=== PATIENT | female | born 1995 | race Two or more races ===

== ENCOUNTER 2019-12-29 05:19 | Inpatient (IN) | payer OTHER, SELFPAY ==
[~2019-12-29 05:19] MED LIST: Citric Acid/Sodium Citrate Solution 30 ML Cup PO ONE; Oxytocin/0.9 % Sodium Chloride 30 UNIT/500 ML BAG IV SCH; Sodium Chloride 0.9% 10 ML SDV IV PRN; Sodium Chloride 0.9% 10 ML Syringe FLUSH PRN; Sodium Chloride 0.9% 2.5 ML Syringe FLUSH PRN
[2019-12-29] MEDS: Lactated Ringers 1,000 ML IV SCH ×4 (06:04→23:41)
--- NOTE | 2019-12-29 07:06 | PCM.PREANE ---
Preanesthetic Assessment - Anesthesia/Transfusion/Family Hx Anesthesia History: Prior Anesthesia Without Reaction Family History of Anesthesia Reaction: No Transfusion History: No Prior Transfusion(s) Intubation History: Unknown - Review of Systems General: No Symptoms Pulmonary: No Symptoms Cardiovascular: No Symptoms Gastrointestinal: No Symptoms Neurological: No Symptoms Other: Reports: None - Physical Assessment Height: 5 ft 5.75 in Weight: 90 kg ASA Class: 2 Mental Status: Alert & Oriented x3 Airway Class: Mallampati = 2 Dentition: Reports: Normal Dentition Thyro-Mental Finger Breadths: 3 Mouth Opening Finger Breadths: 3 ROM/Head Extension: Full Lungs: Clear to Auscultation, Normal Respiratory Effort Cardiovascular: Regular Rate, Regular Rhythm - Lab Values: Laboratory Last Values WBC 6.60 K/uL (4.0-11.0) 12/28/19 09:45 RBC 4.64 M/uL (4.30-5.90) 12/28/19 09:45 Hgb 12.7 g/dL (12.0-16.0) 12/28/19 09:45 Hct 38.7 % (36.0-46.0) 12/28/19 09:45 MCV 83.4 fL (80.0-98.0) 12/28/19 09:45 MCH 27.4 pg (27.0-32.0) 12/28/19 09:45 MCHC 32.8 g/dL (31.0-37.0) 12/28/19 09:45 RDW Std Deviation 41.1 fl (28.0-62.0) 12/28/19 09:45 RDW Coeff of Jael 14 % (11.0-15.0) 12/28/19 09:45 Plt Count 164 K/uL (150-400) 12/28/19 09:45 MPV 9.90 fL (7.40-12.00) 12/28/19 09:45 Nucleated RBC % 0.0 /100WBC 12/28/19 09:45 Nucleated RBCs # 0 K/uL 12/28/19 09:45 Blood Type O POSITIVE 12/28/19 09:45 Antibody Screen NEGATIVE 12/28/19 09:45 - Allergies Allergies/Adverse Reactions: Allergies Allergy/AdvReac Type Severity Reaction Status Date / Time No Known Allergies Allergy Verified 12/26/19 09:12 - Anesthesia Plan Free Text/Narrative:: Ipad translators used to review health history and obtain consent. Pt and spouse have no questions at this time. 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: Reports: : 3 Para: 2 LMP (Approximate): Musculoskeletal History: Reports: None Neurological History: Reports: None Psychiatric History: Reports: None Endocrine/Metabolic History: Reports: Obesity/BMI 30+ Hematologic History: Reports: None Immunologic History: Reports: None Oncologic (Cancer) History: Reports: None Dermatologic History: Reports: None - Infectious Disease History Other Infectious Disease History: Positive Hx Varicella - Past Surgical History Head Surgeries/Procedures: Reports: None HEENT Surgical History: Reports: Tonsillectomy Cardiovascular Surgical History: Reports: None Respiratory Surgical History: Reports: None GI Surgical History: Reports: None Female Surgical History: Reports: Section Endocrine Surgical History: Reports: None Neurological Surgical History: Reports: None Musculoskeletal Surgical History: Reports: None Oncologic Surgical History: Reports: None Dermatological Surgical History: Reports: None - SUBSTANCE USE Smoking Status *Q: Never Smoker Second Hand Smoke Exposure: No Recreational Drug Use History: No - HOME MEDS Home Medications: Home Meds Pnv No.95/Ferrous Fum/Folic AC [ Tablet] 1 each PO DAILY 12/21/19 [History] Calcium Carb, Citrate/Vit D3 [Calcium + D3 ER Tablet] 1 tab PO DAILY 12/26/19 [History] - CURRENT (IN HOUSE) MEDS Current Meds: Current Medications Oxytocin/Sodium Chloride (Oxytocin 30 Unit/500 Ml-Ns) 30 unit in 500 mls @ 250 mls/hr IV TITRATE JASMEET Lactated Ringer's (Ringers, Lactated) 1,000 mls @ 500 mls/hr IV BOLUS JASMEET Last Admin: 12/29/19 06:04 Dose: 500 mls/hr Documented by: Sodium Chloride (Saline Flush) 10 ml FLUSH ASDIRECTED PRN PRN Reason: Keep Vein Open Sodium Chloride (Saline Flush) 2.5 ml FLUSH ASDIRECTED PRN PRN Reason: Keep Vein Open Sodium Chloride (Normal Saline) 10 ml IV ASDIRECTED PRN PRN Reason: IV Use Discontinued Medications Citric Acid/Sodium Citrate (Bicitra Solution) 30 ml PO ONETIME ONE Stop: 12/28/19 09:03
[2019-12-29] MEDS ORDERED: Ondansetron 4 MG/2 ML SDV ONE (07:10)
[2019-12-29] MEDS ORDERED: Oxytocin 10 Units/1 ML SDV ONE (07:10)
[2019-12-29] MEDS ORDERED: ceFAZolin 1 GM Vial ONE (07:11)
[2019-12-29] MEDS ORDERED: Sodium Chloride 0.9% 20 ML ONE (07:11)
[2019-12-29] MEDS ORDERED: Morphine PF 10 MG/10 ML SDV ONE (07:17)
[2019-12-29] MEDS ORDERED: Octyl 2-Cyanoacrylate 1 Tube ONE (07:37)
[2019-12-29] MEDS ORDERED: Citric Acid/Sodium Citrate Solution 30 ML Cup ONE (07:46)
--- NOTE | 2019-12-29 08:00 | PCM.LDHP ---
L&D History of Present Illness - General Date of Service: 12/29/19 Admit Problem/Dx: Patient Status Order with Admit Dx/Problem 12/28/19 09:02 Patient Status [ADT] Routine Admission Diagnosis/Problem Admission Diagnosis/Problem Source of Information: Patient History Limitations: Reports: No Limitations - History of Present Illness Improves with: Reports: None Worsens with: Reports: None Associated Symptoms: Reports: N - Related Data Allergies/Adverse Reactions: Allergies Allergy/AdvReac Type Severity Reaction Status Date / Time No Known Allergies Allergy Verified 12/26/19 09:12 Home Medications: Home Meds Pnv No.95/Ferrous Fum/Folic AC [ Tablet] 1 each PO DAILY 12/21/19 [Histo ry] Calcium Carb, Citrate/Vit D3 [Calcium + D3 ER Tablet] 1 tab PO DAILY 12/26/19 [History] Past Medical History - Past Health History Medical/Surgical History: Denies Medical/Surgical History HEENT History: Reports: None Cardiovascular History: Reports: None Respiratory History: Reports: None Gastrointestinal History: Reports: Gastritis, GERD Genitourinary History: Reports: None 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: Musculoskeletal History: Reports: None Neurological History: Reports: None Psychiatric History: Reports: None Endocrine/Metabolic History: Reports: Obesity/BMI 30+ Hematologic History: Reports: None Immunologic History: Reports: None Oncologic (Cancer) History: Reports: None Dermatologic History: Reports: None - Infectious Disease History Other Infectious Disease History: Positive Hx Varicella - Past Surgical History Head Surgeries/Procedures: Reports: None HEENT Surgical History: Reports: Tonsillectomy Cardiovascular Surgical History: Reports: None Respiratory Surgical History: Reports: None GI Surgical History: Reports: None Female Surgical History: Reports: Section Endocrine Surgical History: Reports: None Neurological Surgical History: Reports: None Musculoskeletal Surgical History: Reports: None Oncologic Surgical History: Reports: None Dermatological Surgical History: Reports: None Social & Family History - Tobacco Use Smoking Status *Q: Never Smoker Second Hand Smoke Exposure: No - Caffeine Use Caffeine Use: Reports: None - Recreational Drug Use Recreational Drug Use: No Drug Use in Last 12 Months: No H&P Review of Systems - Review of Systems: Review Of Systems: See Below General: Reports: No Symptoms HEENT: Reports: No Symptoms Pulmonary: Reports: No Symptoms Cardiovascular: Reports: No Symptoms Gastrointestinal: Reports: No Symptoms Genitourinary: Reports: No Symptoms Musculoskeletal: Reports: No Symptoms Skin: Reports: No Symptoms Psychiatric: Reports: No Symptoms Neurological: Reports: No Symptoms Hematologic/Lymphatic: Reports: No Symptoms Immunologic: Reports: No Symptoms L&D Exam - Exam Exam: See Below - Vital Signs Weight: 90 kg - OB Specific Contraction Intensity: Mild Movement: Active Heart Tones: Present Presentation: Vertex - Exam General: Alert, Oriented HEENT: PERRLA, Conjunctiva Clear, EACs Clear, EOMI, Hearing Intact, Mucosa Moist & Weaver, Nares Patent, Normal Nasal Septum, Posterior Pharynx Clear, TMs Clear Neck: Supple, Trachea Midline Lungs: Clear to Auscultation, Normal Respiratory Effort Cardiovascular: Regular Rate, Regular Rhythm GI/Abdominal Exam: Normal Bowel Sounds, Soft, Non-Tender, No Organomegaly, No Distention, No Abnormal Bruit, No Mass, Pelvis Stable Rectal Exam: Normal Exam, Normal Rectal Tone Genitourinary: Normal external exam, Normal bimanual exam, Normal speculum exam Back Exam: Normal Inspection, Full Range of Motion Extremities: Normal Inspection, Normal Range of Motion, Non-Tender, No Pedal Edema, Normal Capillary Refill Skin: Warm, Dry, Intact Neurological: Cranial Nerves Intact, Reflexes Equal Bilateral Psychiatric: Alert, Normal Affect, Normal Mood - Patient Data Lab Results Last 24 hrs: Laboratory Results - last 24 hr 12/28/19 12/28/19 Range/Units 09:45 09:45 WBC 6.60 (4.0-11.0) K/uL RBC 4.64 (4.30-5.90) M/uL Hgb 12.7 (12.0-16.0) g/dL Hct 38.7 (36.0-46.0) % MCV 83.4 (80.0-98.0) fL MCH 27.4 (27.0-32.0) pg MCHC 32.8 (31.0-37.0) g/dL RDW Std Deviation 41.1 (28.0-62.0) fl RDW Coeff of Jael 14 (11.0-15.0) % Plt Count 164 (150-400) K/uL MPV 9.90 (7.40-12.00) fL Nucleated RBC % 0.0 /100WBC Nucleated RBCs # 0 K/uL Blood Type O POSITIVE Antibody Screen NEGATIVE Result Diagrams: 12/28/19 09:45 Problem List Initiated/Reviewed/Updated: Yes Orders Last 24hrs: Active Orders 24 hr Category Date Time Status Patient Status [ADT] Routine ADT 12/28/19 09:02 Active Procedure Site Prep Instruct [RC] ASDIRECTED Care 12/28/19 09:02 Active Up ad Mikaela [RC] ASDIRECTED Care 12/28/19 09:02 Active Vital Signs [RC] PER UNIT ROUTINE Care 12/28/19 09:02 Active RPR (SYPHILIS SERO) W/ RFLX [REF] Routine Lab 12/28/19 09:45 Received Lactated Ringers [Ringers, Lactated] 1,000 ml Med 12/28/19 09:15 Active IV BOLUS Oxytocin/0.9 % Sodium Chloride [Oxytocin 30 Unit/500 ML Med 12/28/19 09:15 Active -NS] 30 unit in 500 ml IV TITRATE Sodium Chloride 0.9% [Normal Saline] Med 12/28/19 09:02 Active 10 ml IV ASDIRECTED PRN Sodium Chloride 0.9% [Saline Flush] Med 12/28/19 09:02 Active 10 ml FLUSH ASDIRECTED PRN Sodium Chloride 0.9% [Saline Flush] Med 12/28/19 09:02 Active 2.5 ml FLUSH ASDIRECTED PRN Peripheral IV Insertion Adult [OM.PC] Routine Oth 12/28/19 09:02 Ordered Schedule Procedure [COMM] Per Unit Routine Oth 12/28/19 09:02 Ordered Resuscitation Status Routine Resus Stat 12/28/19 09:02 Ordered Medication Orders Oxytocin/Sodium Chloride (Oxytocin 30 Unit/500 Ml-Ns) 30 unit in 500 mls @ 250 mls/hr IV TITRATE JASMEET Lactated Ringer's (Ringers, Lactated) 1,000 mls @ 500 mls/hr IV BOLUS JASMEET Last Admin: 12/29/19 07:56 Dose: 500 mls/hr Documented by: Infusion: 12/29/19 07:56 Dose: 500 mls/hr Documented by: Admin: 12/29/19 06:04 Dose: 500 mls/hr Documented by: VIRGEN Sodium Chloride (Saline Flush) 10 ml FLUSH ASDIRECTED PRN PRN Reason: Keep Vein Open Sodium Chloride (Saline Flush) 2.5 ml FLUSH ASDIRECTED PRN PRN Reason: Keep Vein Open Sodium Chloride (Normal Saline) 10 ml IV ASDIRECTED PRN PRN Reason: IV Use Assessment/Plan Comment:: Term admitted for elective repeat C/section.
[2019-12-29] MEDS ORDERED: Glycopyrrolate 0.2 MG/ML SDV ONE ×2 (08:09→08:14)
[2019-12-29] MEDS ORDERED: ePHEDrine 50 MG/ML SDV ONE (08:09)
[2019-12-29] MEDS ORDERED: Metoprolol Tartrate 5 MG/5 ML SDV ONE (08:16)
[2019-12-29] MEDS ORDERED: Bisacodyl 10 MG Supp RECTAL PRN (08:47)
[2019-12-29] MEDS ORDERED: Misoprostol 200 MCG Tab RECTAL PRN (08:47)
[2019-12-29] MEDS ORDERED: Methylergonovine 0.2 MG/1 ML Amp IM PRN (08:47)
[2019-12-29] MEDS ORDERED: Acetaminophen/oxyCODONE 325-5 MG Tab PO PRN ×2 (08:47)
[2019-12-29] MEDS ORDERED: Oxytocin 10 Units/1 ML SDV IM PRN (08:47)
[2019-12-29] MEDS ORDERED: Lanolin 100% Cream 7 GM Tube TOP PRN (08:47)
[2019-12-29] MEDS ORDERED: Tranexamic Acid 1,000 MG in Sodium Chloride 0.9% 100 ML IV PRN (08:47)
[2019-12-29] MEDS ORDERED: Ondansetron 4 MG/2 ML SDV IVPUSH PRN (08:47)
[2019-12-29] MEDS ORDERED: diphenhydrAMINE 50 MG/ML SDV IVPUSH PRN ×2 (08:47→08:54)
--- NOTE | 2019-12-29 08:51 | PCM.OPNOTE ---
- General Post-Op/Procedure Note Date of Surgery/Procedure: 12/29/19 Operative Procedure(s): IUP term, repeat C/section. Post-Op Diagnosis: Same Anesthesia Technique: Spinal Primary Surgeon: Mannie Otto Warranty Coordinator: Tami Medina Warranty Coordinator: Angeline Damico EBL in mLs: 800 Complications: None Condition: Good
[2019-12-29] MEDS ORDERED: Naloxone 0.4 MG/ML Syringe IVPUSH PRN (08:54)
[2019-12-29] MEDS ORDERED: Nalbuphine 10 MG/1 ML Vial IVPUSH PRN (08:54)
[2019-12-29] MEDS: Ketorolac 30 MG/ML SDV IVPUSH SCH ×3 (09:23→21:59)
--- NOTE | 2019-12-29 10:51 | PCM.POSTAN ---
POST ANESTHESIA ASSESSMENT - MENTAL STATUS Mental Status: Alert, Oriented - VITAL SIGNS Vital Signs: Last Vital Signs Temp 37 C 12/29/19 09:02 Pulse 64 12/29/19 10:31 Resp 15 12/29/19 10:31 BP 113/70 12/29/19 10:31 Pulse Ox 97 12/29/19 10:31 - RESPIRATORY Respiratory Status: Respiratory Rate WNL, Airway Patent, O2 Saturation Stable - CARDIOVASCULAR CV Status: Pulse Rate WNL, Blood Pressure Stable - GASTROINTESTINAL GI Status: No Symptoms - PAIN Pain Score: 0 - POST OP HYDRATION Hydration Status: Adequate & Stable - OBSERVATIONS Free Text/Narrative:: The patient tolerated the procedure well. There were no apparent anesthetic complications at this time. Discharge to floor per criteria.
--- NOTE | 2019-12-29 14:38 | OR ---
SURGEON: Mannie Otto MD DATE OF PROCEDURE: 12/29/2019 PREOPERATIVE DIAGNOSES: Intrauterine , is term, previous section x2. POSTOPERATIVE DIAGNOSES: Intrauterine , is term, previous section x2. OPERATION PERFORMED: Repeat low transverse section. PRIMARY SURGEON: Mannie Otto MD ASSISTANTS: Tami Medina CNM, and Angeline Damico. ANESTHESIA: Spinal, Mr. Loco Ramirez. ESTIMATED BLOOD LOSS: 800 mL. COMPLICATIONS: None. FINDINGS: A viable male fetus. score reported to be 8 and 9. The weight is not available. INDICATIONS FOR SURGERY: [place] referred to the admit note. This patient does have a previous section x2. She had limited care in the [place]. She recently moved from [place], and by an ultrasound and size, she is 39 weeks. The patient is unsure of when was her last menstrual cycle. PROCEDURE IN DETAIL: The patient was brought to the OR, properly identified, and after adequate level of spinal anesthesia with a Bravo catheter in the bladder, the patient was prepped and draped in sterile fashion as usual. Time-out was taken and then low transverse Pfannenstiel skin incision was done. Carmenza fascia and rectus fascia were opened in direction of the incision. The 2 recti muscles were . Peritoneal cavity was entered. A bladder flap was raised in the usual manner pushing the bladder away from the lower uterine segment and low transverse uterine incision was done extending manually with the hand. Fetus was in a footling breech presentation, delivered without any problem. Fetus cried immediately and later on the score reported to be 8 and 9. The placenta delivered spontaneous, complete, and intact and repair of the lower uterine segment was done with 2-0 Vicryl continuous interlocking in 2 layers. Reperitonealization done with 3-0 Vicryl continuous and then the peritoneal cavity entered, being evacuated completely from all blood and blood clot and closed with 3-0 Vicryl continuous. The rectus fascia then was closed with #1 PDS double strand continuous, the Carmenza fascia with 3-0 Vicryl continuous, and skin closed in a subcuticular fashion with Stratafix. Instrument and sponge count was correct. The patient tolerated the procedure well, went to recovery room in stable general condition. HUGH / MODAnthony /[id number]
[2019-12-29] MEDS: Docusate Sodium 100 MG Cap PO SCH (21:58)
[2019-12-30] MEDS: Ketorolac 30 MG/ML SDV IVPUSH SCH ×2 (03:13→09:31)
--- NOTE | 2019-12-30 06:25 | PCM48HPAN ---
Post Anesthesia Note - EVALUATION WITHIN 48HRS OF ANESTHETIC Vital Signs in Normal Range: Yes Patient Participated in Evaluation: Yes Respiratory Function Stable: Yes Airway Patent: Yes Cardiovascular Function Stable: Yes Hydration Status Stable: Yes Pain Control Satisfactory: Yes Nausea and Vomiting Control Satisfactory: Yes Mental Status Recovered: Yes Vital Signs: Last Vital Signs Temp 36.5 C 12/30/19 04:10 Pulse 65 12/30/19 05:10 Resp 17 12/30/19 05:10 BP 118/62 12/30/19 04:10 Pulse Ox 98 12/30/19 05:10 - COMMENTS/OBSERVATIONS Free Text/Narrative:: The patient has no complaints at this time. There were no apparent anesthetic complications at this time.
--- NOTE | 2019-12-30 09:07 | PCM.PNPP ---
- General Info Date of Service: 12/30/19 Functional Status: Reports: Pain Controlled - Review of Systems General: Reports: No Symptoms HEENT: Reports: No Symptoms Pulmonary: Reports: No Symptoms Cardiovascular: Reports: No Symptoms Gastrointestinal: Reports: No Symptoms Genitourinary: Reports: No Symptoms Musculoskeletal: Reports: No Symptoms Skin: Reports: No Symptoms Neurological: Reports: No Symptoms Psychiatric: Reports: No Symptoms - General Info Date of Service: 12/30/19 - Patient Data Vital Signs - Most Recent: Last Vital Signs Temp 36.6 C 12/30/19 08:00 Pulse 64 12/30/19 08:00 Resp 13 12/30/19 08:00 BP 122/66 12/30/19 08:00 Pulse Ox 99 12/30/19 08:00 Weight - Most Recent: 90 kg I&O - Last 24 Hours: Intake & Output 12/29/19 12/30/19 12/30/19 22:59 06:59 14:59 Intake Total 2319 Output Total 1650 Balance 669 Lab Results - Last 24 Hours: Laboratory Results - last 24 hr 12/30/19 Range/Units 05:38 Hgb 10.8 L (12.0-16.0) g/dL Hct 33.6 L (36.0-46.0) % Med Orders - Current: Current Medications Bisacodyl (Dulcolax) 10 mg RECTAL ONETIME PRN PRN Reason: Constipation Diphenhydramine HCl (Benadryl) 25 mg IVPUSH Q6H PRN PRN Reason: Itching or Nausea Docusate Sodium (Colace) 100 mg PO BID [facility] Last Admin: 12/29/19 21:58 Dose: 100 mg Documented by: Emollient Ointment (Lansinoh Hpa) 0 gm TOP ASDIRECTED PRN PRN Reason: Sore Nipples Oxytocin/Sodium Chloride (Oxytocin 30 Unit/500 Ml-Ns) 30 unit in 500 mls @ 250 mls/hr IV TITRATE [facility] Lactated Ringer's (Ringers, Lactated) 1,000 mls @ 500 mls/hr IV BOLUS [facility] Last Admin: 12/29/19 07:56 Dose: 500 mls/hr Documented by: Lactated Ringer's (Ringers, Lactated) 1,000 mls @ 125 mls/hr IV ASDIRECTED [facility] Last Admin: 12/29/19 23:41 Dose: 125 mls/hr Documented by: Tranexamic Acid 1,000 mg/ (Sodium Chloride) 110 mls @ 660 mls/hr IV ONETIME PRN PRN Reason: Bleeding Ibuprofen (Motrin) 800 mg PO Q8H PRN PRN Reason: mild pain or fever Methylergonovine Maleate (Methergine) 0.2 mg IM ONETIME PRN PRN Reason: Excessive Vaginal Bleeding Misoprostol (Cytotec) 1,000 mcg RECTAL ONETIME PRN PRN Reason: excessive bleeding Ondansetron HCl (Zofran) 4 mg IVPUSH Q4H PRN PRN Reason: Nausea/Vomiting Oxycodone/Acetaminophen (Percocet 325-5 Mg) 1 tab PO Q4H PRN PRN Reason: Pain (moderate 4-6) Oxycodone/Acetaminophen (Percocet 325-5 Mg) 2 tab PO Q4H PRN PRN Reason: Pain (moderate 4-6) Oxytocin (Pitocin) 10 unit IM ASDIRECTED PRN PRN Reason: Excessive Vaginal Bleeding Sodium Chloride (Saline Flush) 10 ml FLUSH ASDIRECTED PRN PRN Reason: Keep Vein Open Sodium Chloride (Saline Flush) 2.5 ml FLUSH ASDIRECTED PRN PRN Reason: Keep Vein Open Sodium Chloride (Normal Saline) 10 ml IV ASDIRECTED PRN PRN Reason: IV Use Discontinued Medications Cefazolin Sodium (Ancef) Confirm Administered Dose 2 gm .ROUTE .STK-MED ONE Stop: 12/29/19 07:12 Citric Acid/Sodium Citrate (Bicitra Solution) 30 ml PO ONETIME ONE Stop: 12/28/19 09:03 Citric Acid/Sodium Citrate (Bicitra Solution) Confirm Administered Dose 30 ml .ROUTE .STK-MED ONE Stop: 12/29/19 07:47 Ephedrine Sulfate (Ephedrine Sulfate) Confirm Administered Dose 50 mg .ROUTE .STK-MED ONE Stop: 12/29/19 08:10 Glycopyrrolate (Robinul) Confirm Administered Dose 0.2 mg .ROUTE .STK-MED ONE Stop: 12/29/19 08:10 Glycopyrrolate (Robinul) Confirm Administered Dose 0.2 mg .ROUTE .STK-MED ONE Stop: 12/29/19 08:15 Sodium Chloride (Normal Saline) Confirm Administered Dose 20 mls @ as directed .ROUTE .STK-MED ONE Stop: 12/29/19 07:12 Ketorolac Tromethamine (Toradol) 30 mg IVPUSH Q6H JASMEET Stop: 12/30/19 09:01 Last Admin: 12/30/19 03:13 Dose: 30 mg Documented by: Metoprolol Tartrate (Lopressor) Confirm Administered Dose 5 mg .ROUTE .STK-MED ONE Stop: 12/29/19 08:17 Morphine Sulfate (Duramorph Pf) Confirm Administered Dose 10 mg .ROUTE .STK-MED ONE Stop: 12/29/19 07:18 Nalbuphine HCl (Nubain) 5 mg IVPUSH Q3H PRN PRN Reason: Pruritis Stop: 12/30/19 08:54 Naloxone HCl (Narcan) 0.1 mg IVPUSH ONETIME PRN PRN Reason: Respiratory Depression Stop: 12/30/19 08:54 Octyl Cyanoacrylate (Dermabond Advance) Confirm Administered Dose 1 applic .ROUTE .STK-MED ONE Stop: 12/29/19 07:38 Ondansetron HCl (Zofran) Confirm Administered Dose 4 mg .ROUTE .STK-MED ONE Stop: 12/29/19 07:11 Oxytocin (Pitocin) Confirm Administered Dose 30 unit .ROUTE .STK-MED ONE Stop: 12/29/19 07:11 - Infant Interaction Disposition, : Not Applicable Support Person: Significant Other - Recovery Exam Fundal Tone: Firm Fundal Level: 1 Fingerbreadths Below Umbilicus Fundal Placement: Midline Lochia Amount: Small Lochia Color: Rubra/Red Perineum Description: Intact, Minimal Bruising/Swelling Episiotomy/Laceration: None Bladder Status: Indwelling Catheter in Place Urinary Elimination: Indwelling Catheter - Exam General: Alert, Oriented HEENT: Pupils Equal Neck: Supple Lungs: Clear to Auscultation, Normal Respiratory Effort Cardiovascular: Regular Rate, Regular Rhythm GI/Abdominal Exam: Normal Bowel Sounds, Soft, Non-Tender, No Organomegaly, No Distention, No Abnormal Bruit, No Mass, Pelvis Stable Extremities: Normal Inspection, Normal Range of Motion, Non-Tender, No Pedal Edema, Normal Capillary Refill Skin: Warm, Dry, Intact Wound/Incisions: Healing Well Neurological: No New Focal Deficit Psy/Mental Status: Alert, Normal Affect, Normal Mood - Problem List Review Problem List Initiated/Reviewed/Updated: Yes - My Orders Last 24 Hours: My Active Orders 12/29/19 08:47 Patient Status [ADT] Routine Ambulate [RC] PER UNIT ROUTINE Communication Order [RC] PER UNIT ROUTINE Communication Order [RC] PER UNIT ROUTINE Communication Order [RC] Per Unit Routine May Shower [RC] ASDIRECTED RT Incentive Spirometry [RC] Q2HWA Vital Signs [RC] PER UNIT ROUTINE Acetaminophen/oxyCODONE [Percocet 325-5 MG] 1 tab PO Q4H PRN Acetaminophen/oxyCODONE [Percocet 325-5 MG] 2 tab PO Q4H PRN Lanolin [Lansinoh HPA] See Dose Instructions TOP ASDIRECTED PRN Methylergonovine [Methergine] 0.2 mg IM ONETIME PRN Ondansetron [Zofran] 4 mg IVPUSH Q4H PRN Oxytocin [Pitocin] 10 unit IM ASDIRECTED PRN Tranexamic Acid [Cyklokapron] 1,000 mg Sodium Chloride 0.9% [Normal Saline] 100 ml IV ONETIME bisacodyL [Dulcolax] 10 mg RECTAL ONETIME PRN diphenhydrAMINE [Benadryl] 25 mg IVPUSH Q6H PRN miSOPROStoL [Cytotec] 1,000 mcg RECTAL ONETIME PRN Assess Lochia [WOMSER] Per Unit Routine Assess Uterine Involution [WOMSER] Per Unit Routine Breast Pump [WOMSER] Per Unit Routine Peripheral IV Discontinue [OM.PC] Routine Sequential Compression Device [OM.PC] Per Unit Routine 12/29/19 08:48 Antiembolic Devices [RC] PER UNIT ROUTINE 12/29/19 09:00 Docusate Sodium [Colace] 100 mg PO BID Lactated Ringers [Ringers, Lactated] 1,000 ml IV ASDIRECTED 12/29/19 Dinner Regular Diet [DIET] 12/30/19 15:00 Ibuprofen [Motrin] 800 mg PO Q8H PRN - Assessment Assessment:: Status post repeat section yesterday had a baby is transferred to a tertiary care she is doing well today she expressed her desire to go home to check on the baby had incision is clean her pain is under control she is on regular diet she is voiding without any problem. - Plan Plan:: Term admitted for elective repeat C/section.
--- NOTE | 2019-12-30 09:07 | PCM.DCSUM1 ---
Discharge Summary - Hospital Course Diagnosis: Stroke: No - Discharge Data Discharge Date: 12/30/19 Discharge Disposition: Home, Self-Care 01 Condition: Good - Referral to Home Health Primary Care Physician: PCP None - Patient Summary/Data Operative Procedure(s) Performed: IUP term, repeat C/section. - Patient Instructions Diet: Usual Diet as Tolerated Activity: As Tolerated Driving: Do Not Drive Showering/Bathing: May Shower - Discharge Plan Home Medications: Home Meds Pnv No.95/Ferrous Fum/Folic AC [ Tablet] 1 each PO DAILY 12/21/19 [History] Calcium Carb, Citrate/Vit D3 [Calcium + D3 ER Tablet] 1 tab PO DAILY 12/26/19 [History] Patient Handouts: Breast Pumping Tips, [id number] Referrals: [facility] [Outside] Mannie Otto MD [Physician] - 01/04/20 2:45 pm Tami Medina CNM [Mid-] - 02/13/20 2:00 pm - Discharge Summary/Plan Comment DC Time >30 min.: Yes - General Info Date of Service: 12/30/19 Functional Status: Reports: Pain Controlled - Review of Systems General: Reports: No Symptoms HEENT: Reports: No Symptoms Pulmonary: Reports: No Symptoms Cardiovascular: Reports: No Symptoms Gastrointestinal: Reports: No Symptoms Genitourinary: Reports: No Symptoms Musculoskeletal: Reports: No Symptoms Skin: Reports: No Symptoms Neurological: Reports: No Symptoms Psychiatric: Reports: No Symptoms - Patient Data Vitals - Most Recent: Last Vital Signs Temp 36.6 C 12/30/19 08:00 Pulse 64 12/30/19 08:00 Resp 13 12/30/19 08:00 BP 122/66 12/30/19 08:00 Pulse Ox 99 12/30/19 08:00 Weight - Most Recent: 90 kg I&O - Last 24 hours: Intake & Output 12/29/19 12/30/19 12/30/19 22:59 06:59 14:59 Intake Total 2319 Output Total 1650 Balance 669 Lab Results - Last 24 hrs: Laboratory Results - last 24 hr 12/30/19 Range/Units 05:38 Hgb 10.8 L (12.0-16.0) g/dL Hct 33.6 L (36.0-46.0) % Med Orders - Current: Current Medications Bisacodyl (Dulcolax) 10 mg RECTAL ONETIME PRN PRN Reason: Constipation Diphenhydramine HCl (Benadryl) 25 mg IVPUSH Q6H PRN PRN Reason: Itching or Nausea Docusate Sodium (Colace) 100 mg PO BID [facility] Last Admin: 12/29/19 21:58 Dose: 100 mg Documented by: Emollient Ointment (Lansinoh Hpa) 0 gm TOP ASDIRECTED PRN PRN Reason: Sore Nipples Oxytocin/Sodium Chloride (Oxytocin 30 Unit/500 Ml-Ns) 30 unit in 500 mls @ 250 mls/hr IV TITRATE [facility] Lactated Ringer's (Ringers, Lactated) 1,000 mls @ 500 mls/hr IV BOLUS [facility] Last Admin: 12/29/19 07:56 Dose: 500 mls/hr Documented by: Lactated Ringer's (Ringers, Lactated) 1,000 mls @ 125 mls/hr IV ASDIRECTED [facility] Last Admin: 12/29/19 23:41 Dose: 125 mls/hr Documented by: Tranexamic Acid 1,000 mg/ (Sodium Chloride) 110 mls @ 660 mls/hr IV ONETIME PRN PRN Reason: Bleeding Ibuprofen (Motrin) 800 mg PO Q8H PRN PRN Reason: mild pain or fever Methylergonovine Maleate (Methergine) 0.2 mg IM ONETIME PRN PRN Reason: Excessive Vaginal Bleeding Misoprostol (Cytotec) 1,000 mcg RECTAL ONETIME PRN PRN Reason: excessive bleeding Ondansetron HCl (Zofran) 4 mg IVPUSH Q4H PRN PRN Reason: Nausea/Vomiting Oxycodone/Acetaminophen (Percocet 325-5 Mg) 1 tab PO Q4H PRN PRN Reason: Pain (moderate 4-6) Oxycodone/Acetaminophen (Percocet 325-5 Mg) 2 tab PO Q4H PRN PRN Reason: Pain (moderate 4-6) Oxytocin (Pitocin) 10 unit IM ASDIRECTED PRN PRN Reason: Excessive Vaginal Bleeding Sodium Chloride (Saline Flush) 10 ml FLUSH ASDIRECTED PRN PRN Reason: Keep Vein Open Sodium Chloride (Saline Flush) 2.5 ml FLUSH ASDIRECTED PRN PRN Reason: Keep Vein Open Sodium Chloride (Normal Saline) 10 ml IV ASDIRECTED PRN PRN Reason: IV Use Discontinued Medications Cefazolin Sodium (Ancef) Confirm Administered Dose 2 gm .ROUTE .STK-MED ONE Stop: 12/29/19 07:12 Citric Acid/Sodium Citrate (Bicitra Solution) 30 ml PO ONETIME ONE Stop: 12/28/19 09:03 Citric Acid/Sodium Citrate (Bicitra Solution) Confirm Administered Dose 30 ml .ROUTE .STK-MED ONE Stop: 12/29/19 07:47 Ephedrine Sulfate (Ephedrine Sulfate) Confirm Administered Dose 50 mg .ROUTE .STK-MED ONE Stop: 12/29/19 08:10 Glycopyrrolate (Robinul) Confirm Administered Dose 0.2 mg .ROUTE .STK-MED ONE Stop: 12/29/19 08:10 Glycopyrrolate (Robinul) Confirm Administered Dose 0.2 mg .ROUTE .STK-MED ONE Stop: 12/29/19 08:15 Sodium Chloride (Normal Saline) Confirm Administered Dose 20 mls @ as directed .ROUTE .STK-MED ONE Stop: 12/29/19 07:12 Ketorolac Tromethamine (Toradol) 30 mg IVPUSH Q6H JAS[facility] Stop: 12/30/19 09:01 Last Admin: 12/30/19 03:13 Dose: 30 mg Documented by: Metoprolol Tartrate (Lopressor) Confirm Administered Dose 5 mg .ROUTE .STK-MED ONE Stop: 12/29/19 08:17 Morphine Sulfate (Duramorph Pf) Confirm Administered Dose 10 mg .ROUTE .STK-MED ONE Stop: 12/29/19 07:18 Nalbuphine HCl (Nubain) 5 mg IVPUSH Q3H PRN PRN Reason: Pruritis Stop: 12/30/19 08:54 Naloxone HCl (Narcan) 0.1 mg IVPUSH ONETIME PRN PRN Reason: Respiratory Depression Stop: 12/30/19 08:54 Octyl Cyanoacrylate (Dermabond Advance) Confirm Administered Dose 1 applic .ROUTE .STK-MED ONE Stop: 12/29/19 07:38 Ondansetron HCl (Zofran) Confirm Administered Dose 4 mg .ROUTE .STK-MED ONE Stop: 12/29/19 07:11 Oxytocin (Pitocin) Confirm Administered Dose 30 unit .ROUTE .STK-MED ONE Stop: 12/29/19 07:11 - Exam General: Reports: Alert, Oriented HEENT: Reports: Pupils Equal, Pupils Reactive, EOMI, Mucous Membr. Moist/[place] Neck: Reports: Supple Lungs: Reports: Clear to Auscultation, Normal Respiratory Effort Cardiovascular: Reports: Regular Rate, Regular Rhythm GI/Abdominal Exam: Normal Bowel Sounds, Soft, Non-Tender, No Organomegaly, No Distention, No Abnormal Bruit, No Mass, Pelvis Stable (Female) Exam: Normal External Exam, Normal Speculum Exam, Normal Bimanual Exam Rectal (Female) Exam: Normal Exam, Normal Rectal Tone Back Exam: Reports: Normal Inspection, Full Range of Motion Extremities: Normal Inspection, Normal Range of Motion, Non-Tender, No Pedal Edema, Normal Capillary Refill Skin: Reports: Warm, Dry, Intact Wound/Incisions: Reports: Healing Well Neurological: Reports: No New Focal Deficit Psy/Mental Status: Reports: Alert, Normal Affect, Normal Mood
[2019-12-30] MEDS: Docusate Sodium 100 MG Cap PO SCH ×2 (09:31)
[2019-12-30] MEDS ORDERED: Ibuprofen 800 MG Tab PO PRN (15:00)
== END 2019-12-30 12:05 | disposition home or self-care (01) | DRG 788 ==
LOC: MW.OB 05:19
PROVIDERS: ADMIT Obstetrics & Gynecology; ATTEND Obstetrics & Gynecology
PROC: 10D00Z1 Extraction of Products of Conception, Low, Open Approach (ICD-10-PCS; principal; 2019-12-29)
DX: O34.211 Maternal care for low transverse scar from previous cesarean delivery (principal); O99.62 Diseases of the digestive system complicating childbirth; K21.9 Gastro-esophageal reflux disease without esophagitis; O99.214 Obesity complicating childbirth; E66.9 Obesity, unspecified; Z3A.39 39 weeks gestation of pregnancy; Z37.0 Single live birth
CPT/HCPCS: 01961; 36415; 59025; 85014; 85018; 85027; 86592; 86850; 86900; 86901; A9270-GY; J0690; J1885; J2270; J2405; J2590; J3490; J7120

== ENCOUNTER 2021-02-21 02:27 | Inpatient (IN) | payer OTHER ==
[2021-02-21] MEDS ORDERED: Sodium Chloride 0.9% 10 ML SDV IV PRN (03:01)
[2021-02-21] MEDS ORDERED: Sodium Chloride 0.9% 2.5 ML Syringe FLUSH PRN (03:01)
[2021-02-21] MEDS ORDERED: Citric Acid/Sodium Citrate Solution 30 ML Cup PO ONE (03:01)
[2021-02-21] MEDS ORDERED: Sodium Chloride 0.9% 10 ML Syringe FLUSH PRN (03:01)
[2021-02-21] MEDS ORDERED: Oxytocin/0.9 % Sodium Chloride 30 UNIT/500 ML BAG IV SCH (03:15)
[2021-02-21] MEDS: Lactated Ringers 1,000 ML IV SCH ×4 (06:22→21:26)
[2021-02-21] MEDS ORDERED: ceFAZolin 1 GM in Premix Bag 1 BAG IV ONE (07:20)
[2021-02-21] MEDS ORDERED: ceFAZolin 2 GM in Premix Bag 1 BAG IV ONE (07:46)
[2021-02-21] MEDS ORDERED: Morphine PF 10 MG/10 ML SDV ONE (08:02)
[2021-02-21] MEDS ORDERED: Methylergonovine 0.2 MG/1 ML Amp IM PRN (08:03)
[2021-02-21] MEDS ORDERED: Ondansetron 4 MG/2 ML SDV IVPUSH PRN (08:03)
[2021-02-21] MEDS ORDERED: Lanolin 100% Cream 7 GM Tube TOP PRN (08:03)
[2021-02-21] MEDS ORDERED: Oxytocin 10 Units/1 ML SDV IM PRN (08:03)
[2021-02-21] MEDS ORDERED: diphenhydrAMINE 50 MG/ML SDV IVPUSH PRN (08:03)
[2021-02-21] MEDS ORDERED: Acetaminophen/oxyCODONE 325-5 MG Tab PO PRN ×2 (08:03)
[2021-02-21] MEDS ORDERED: Misoprostol 200 MCG Tab RECTAL PRN (08:03)
[2021-02-21] MEDS ORDERED: Ibuprofen 800 MG Tab PO PRN (08:03)
[2021-02-21] MEDS ORDERED: Bisacodyl 10 MG Supp RECTAL PRN (08:03)
--- NOTE | 2021-02-21 08:03 | PCM.LDHP ---
L&D History of Present Illness - General Date of Service: 02/21/21 Admit Problem/Dx: Patient Status Order with Admit Dx/Problem 02/21/21 03:01 Patient Status [ADT] Routine Admission Diagnosis/Problem Admission Diagnosis/Problem Source of Information: Patient History Limitations: Reports: No Limitations - History of Present Illness Improves with: Reports: None Worsens with: Reports: None Associated Symptoms: Reports: N - Related Data Allergies/Adverse Reactions: Allergies Allergy/AdvReac Type Severity Reaction Status Date / Time No Known Allergies Allergy Verified 02/21/21 03:00 Home Medications: Home Meds Pnv No.95/Ferrous Fum/Folic AC [ Tablet] 1 each PO DAILY 12/21/19 [Histo ry] Past Medical History - Past Health History Medical/Surgical History: Denies Medical/Surgical History HEENT History: Reports: None Cardiovascular History: Reports: None Respiratory History: Reports: None Gastrointestinal History: Reports: Gastritis Genitourinary History: Reports: None 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: Musculoskeletal History: Reports: None Neurological History: Reports: None Psychiatric History: Reports: None Endocrine/Metabolic History: Reports: Obesity/BMI 30+ Hematologic History: Reports: None Immunologic History: Reports: None Oncologic (Cancer) History: Reports: None Dermatologic History: Reports: None - Infectious Disease History Other Infectious Disease History: Positive Hx Varicella - Past Surgical History Head Surgeries/Procedures: Reports: None HEENT Surgical History: Reports: Tonsillectomy Cardiovascular Surgical History: Reports: None Respiratory Surgical History: Reports: None GI Surgical History: Reports: None Female Surgical History: Reports: Section Endocrine Surgical History: Reports: None Neurological Surgical History: Reports: None Musculoskeletal Surgical History: Reports: None Oncologic Surgical History: Reports: None Dermatological Surgical History: Reports: None Social & Family History - Tobacco Use Tobacco Use Status *Q: Never Tobacco User Second Hand Smoke Exposure: No - Caffeine Use Caffeine Use: Reports: None - Recreational Drug Use Recreational Drug Use: No Drug Use in Last 12 Months: No H&P Review of Systems - Review of Systems: Review Of Systems: See Below General: Reports: No Symptoms HEENT: Reports: No Symptoms Pulmonary: Reports: No Symptoms Cardiovascular: Reports: No Symptoms Gastrointestinal: Reports: No Symptoms Genitourinary: Reports: No Symptoms Musculoskeletal: Reports: No Symptoms Skin: Reports: No Symptoms Psychiatric: Reports: No Symptoms Neurological: Reports: No Symptoms Hematologic/Lymphatic: Reports: No Symptoms Immunologic: Reports: No Symptoms L&D Exam - Exam Exam: See Below - Vital Signs Weight: 99.79 kg - OB Specific Contraction Intensity: Mild Movement: Active Heart Tones: Present Presentation: Vertex - Rowe Score Rowe Score Cervix Position: Midposition Rowe Score Consistency: Medium Rowe Score Effacement: 31-50% Rowe Score Dilation: 1-2 cm Rowe Score 's Station: -2 Rowe Score Total: 5 - Exam General: Alert, Oriented HEENT: PERRLA, Conjunctiva Clear, EACs Clear, EOMI, Hearing Intact, Mucosa Moist & [place], Nares Patent, Normal Nasal Septum, Posterior Pharynx Clear, TMs Clear Neck: Supple, Trachea Midline Lungs: Clear to Auscultation, Normal Respiratory Effort Cardiovascular: Regular Rate, Regular Rhythm GI/Abdominal Exam: Normal Bowel Sounds, Soft, Non-Tender, No Organomegaly, No Distention, No Abnormal Bruit, No Mass, Pelvis Stable Rectal Exam: Normal Exam, Normal Rectal Tone Genitourinary: Normal external exam, Normal bimanual exam, Normal speculum exam Back Exam: Normal Inspection, Full Range of Motion Extremities: Normal Inspection, Normal Range of Motion, Non-Tender, No Pedal Edema, Normal Capillary Refill Skin: Warm, Dry, Intact Neurological: Cranial Nerves Intact, Reflexes Equal Bilateral Psychiatric: Alert, Normal Affect, Normal Mood - Patient Data Lab Results Last 24 hrs: Laboratory Results - last 24 hr 02/21/21 Range/Units 06:18 WBC 5.62 (4.0-11.0) K/uL RBC 4.59 (4.30-5.90) M/uL Hgb 13.0 (12.0-16.0) g/dL Hct 38.4 (36.0-46.0) % MCV 83.7 (80.0-98.0) fL MCH 28.3 (27.0-32.0) pg MCHC 33.9 (31.0-37.0) g/dL RDW Std Deviation 40.9 (28.0-62.0) fl RDW Coeff of Jael 14 (11.0-15.0) % Plt Count 152 (150-400) K/uL MPV 11.00 (7.40-12.00) fL Nucleated RBC % 0.0 /100WBC Nucleated RBCs # 0 K/uL Result Diagrams: 02/21/21 06:18 Problem List Initiated/Reviewed/Updated: Yes Orders Last 24hrs: Active Orders 24 hr Category Date Time Status Patient Status [ADT] Routine ADT 02/21/21 03:01 Active Non Stress Test [RC] PER UNIT ROUTINE Care 02/21/21 03:01 Active Notify Provider Vital Signs [RC] PRN Care 02/21/21 05:00 Active Procedure Site Prep Instruct [RC] ASDIRECTED Care 02/21/21 03:01 Active Up ad Mikaela [RC] ASDIRECTED Care 02/21/21 03:01 Active Verify Patient Consent Obtain [RC] ASDIRECTED Care 02/21/21 03:01 Active Vital Signs [RC] PER UNIT ROUTINE Care 02/21/21 03:01 Active RPR (SYPHILIS SERO) W/ RFLX [REF] Routine Lab 02/21/21 06:18 Received TYPE AND SCREEN [BBK] Routine Lab 02/21/21 06:18 Received Lactated Ringers [Ringers, Lactated] 1,000 ml Med 02/21/21 03:15 Active IV BOLUS Oxytocin/0.9 % Sodium Chloride [Oxytocin 30 Unit in NS Med 02/21/21 03:15 Active 0.9% 500 ML Premix] 30 unit in 500 ml IV TITRATE Sodium Chloride 0.9% [Normal Saline] Med 02/21/21 03:01 Active 10 ml IV ASDIRECTED PRN Sodium Chloride 0.9% [Saline Flush] Med 02/21/21 03:01 Active 10 ml FLUSH ASDIRECTED PRN Sodium Chloride 0.9% [Saline Flush] Med 02/21/21 03:01 Active 2.5 ml FLUSH ASDIRECTED PRN ceFAZolin [Ancef 2 GM/50 ML] 2 gm Med 02/21/21 07:46 Active Premix Bag 1 bag IV ONETIME Peripheral IV Insertion Adult [OM.PC] Routine Oth 02/21/21 03:01 Ordered Schedule Procedure [COMM] Per Unit Routine Oth 02/21/21 03:01 Ordered Resuscitation Status Routine Resus Stat 02/21/21 03:01 Ordered Medication Orders Oxytocin/Sodium Chloride (Oxytocin 30 Unit In Ns 0.9% 500 Ml Premix) 30 unit in 500 mls @ 250 mls/hr IV TITRATE JASMEET Lactated Ringer's (Ringers, Lactated) 1,000 mls @ 500 mls/hr IV BOLUS JASMEET Last Admin: 02/21/21 07:19 Dose: 999 mls/hr Documented by: Infusion: 02/21/21 07:19 Dose: 999 mls/hr Documented by: Admin: 02/21/21 06:22 Dose: 999 mls/hr Documented by: MADELAINE Cefazolin Sodium/Dextrose 2 gm (/ Premix) 50 mls @ 100 mls/hr IV ONETIME ONE Stop: 02/21/21 08:15 Sodium Chloride (Sodium Chloride 0.9% 10 Ml Syringe) 10 ml FLUSH ASDIRECTED PRN PRN Reason: Keep Vein Open Sodium Chloride (Sodium Chloride 0.9% 2.5 Ml Syringe) 2.5 ml FLUSH ASDIRECTED PRN PRN Reason: Keep Vein Open Sodium Chloride (Sodium Chloride 0.9% 10 Ml Sdv) 10 ml IV ASDIRECTED PRN PRN Reason: IV Use Assessment/Plan Comment:: Term admitted for elective repeat C/section.
[2021-02-21] MEDS ORDERED: Lactated Ringers 1,000 ML IV SCH (08:15)
[2021-02-21] MEDS ORDERED: Ketorolac 30 MG/ML SDV IVPUSH SCH (08:15)
[2021-02-21] MEDS ORDERED: Ketorolac 30 MG/ML SDV ONE (09:00)
[2021-02-21] MEDS ORDERED: Glycopyrrolate 0.2 MG/ML SDV ONE ×2 (09:00→12:27)
[2021-02-21] MEDS ORDERED: Ondansetron 4 MG/2 ML SDV ONE (09:00)
[2021-02-21] MEDS ORDERED: Docusate Sodium 100 MG Cap PO SCH (09:00)
[2021-02-21] MEDS ORDERED: Dexamethasone 4 MG/ML 5 ML MDV ONE (09:00)
[2021-02-21] MEDS ORDERED: ePHEDrine 50 MG/ML SDV ONE (09:00)
[2021-02-21] MEDS ORDERED: Sodium Chloride 0.9% 20 ML ONE (09:01)
--- NOTE | 2021-02-21 09:14 | PCM.OPNOTE ---
- General Post-Op/Procedure Note Date of Surgery/Procedure: 02/21/21 Operative Procedure(s): Repeat C/section Pre Op Diagnosis: Term , previous c/section. Post-Op Diagnosis: Same Anesthesia Technique: Spinal Primary Surgeon: Mannie Otto Turbine Attendant: Mariela Kaminski EBL in mLs: 1,200 Complications: None Condition: Good
[2021-02-21] MEDS ORDERED: Oxytocin 10 Units/1 ML SDV ONE ×2 (09:28→15:33)
[2021-02-21] MEDS: Tranexamic Acid 1,000 MG in Sodium Chloride 0.9% 100 ML IV PRN ×2 (09:35→11:30)
[2021-02-21] MEDS ORDERED: Methylergonovine 0.2 MG/1 ML Amp ONE ×2 (09:43→10:57)
[2021-02-21] MEDS ORDERED: fentaNYL 250 MCG/5 ML SDV ONE (11:11)
[2021-02-21] MEDS ORDERED: Ketamine 500 mg/10 ML MDV ONE (11:12)
[2021-02-21] MEDS ORDERED: Carboprost Tromethamine 250 MCG/1 ML Amp ONE (11:15)
[2021-02-21] MEDS ORDERED: Carboprost Tromethamine 250 MCG/1 ML Amp IM ONE (11:59)
--- NOTE | 2021-02-21 12:01 | PCM.SN.2 ---
- Free Text/Narrative Note: Called acutely by JABIER Swift to help manage patient with hemorrhage. 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 Upon my arrival, patient is dorsal supine--pale. She has iv in place and anesthesia/nursing team present. Lost 1200 Ml with c section this am and receiving 2 U PRBC--with atony, has received methergine, cytotec rectally, TXA and 3 bags of pitocin (30 U, 30U and 40 U), hemabate. They have weighed another almost 4000 ML prior to my arrival. Patient is alert, aggressively performed fundal massage with internal lower uterine massage and cleared clots. At this point, bleeding is minimal. She is receiving a 3rd U PRBC and has another ordered as well as FFP. With my observation, uterus is remaining more firm and bleeding is minimal. Balloon is present at bedside, but Dr Otto has presented and I am turning care back over to him. I have updated him on events thus far. Patient's BP is 119/67 and pulse 70s with 100% O2 saturation. She is alert and responsive. She denies pain, dizziness, or nausea at this juncture. Time Documentation
[2021-02-21] MEDS ORDERED: Etomidate 2 MG/ML 20 ML SDV IVPUSH ONE (12:27)
[2021-02-21] MEDS ORDERED: Phenylephrine 1% 10 MG/ML SDV ONE (12:27)
--- NOTE | 2021-02-21 14:21 | PCM.PREANE ---
Preanesthetic Assessment - Anesthesia/Transfusion/Family Hx Anesthesia History: Prior Anesthesia Without Reaction Family History of Anesthesia Reaction: No Transfusion History: No Prior Transfusion(s) Intubation History: Unknown Additional History: History and physical performed with assistance of telephonic legislators. - Review of Systems General: No Symptoms Pulmonary: No Symptoms Cardiovascular: No Symptoms Gastrointestinal: Other (Gerd with elevated BMI of 35.5) Neurological: No Symptoms Other: Reports: None - Physical Assessment NPO Status Date: 02/21/21 NPO Status Time: 00:00 Vital Signs: Last Vital Signs Temp 36.1 C 02/21/21 11:19 Pulse 124 H 02/21/21 11:19 Resp 17 02/21/21 11:19 BP 96/44 L 02/21/21 11:19 Pulse Ox Height: 1.65 m Weight: 99.79 kg ASA Class: 3 Mental Status: Alert & Oriented x3 Airway Class: Mallampati = 3 Dentition: Reports: Normal Dentition Thyro-Mental Finger Breadths: 3 Mouth Opening Finger Breadths: 2 ROM/Head Extension: Full Lungs: Clear to Auscultation, Normal Respiratory Effort Cardiovascular: Regular Rate, Regular Rhythm - Lab Values: Laboratory Last Values WBC 16.36 K/uL (4.0-11.0) H 02/21/21 11:18 RBC 4.62 M/uL (4.30-5.90) 02/21/21 11:18 Hgb 13.1 g/dL (12.0-16.0) 02/21/21 11:18 Hct 38.8 % (36.0-46.0) 02/21/21 11:18 MCV 84.0 fL (80.0-98.0) 02/21/21 11:18 MCH 28.4 pg (27.0-32.0) 02/21/21 11:18 MCHC 33.8 g/dL (31.0-37.0) 02/21/21 11:18 RDW Std Deviation 45.8 fl (28.0-62.0) 02/21/21 11:18 RDW Coeff of Jael 15 % (11.0-15.0) 02/21/21 11:18 Plt Count 219 K/uL (150-400) 02/21/21 11:18 MPV 9.90 fL (7.40-12.00) 02/21/21 11:18 Nucleated RBC % 0.0 /100WBC 02/21/21 11:18 Nucleated RBCs # 0 K/uL 02/21/21 11:18 INR 1.01 02/21/21 11:18 APTT 25.4 SEC (18.6-31.3) 02/21/21 11:18 Fibrinogen 316 mg/dL (215-411) 02/21/21 11:18 Blood Type O POSITIVE 02/21/21 06:18 Antibody Screen NEGATIVE 02/21/21 06:18 Crossmatch See Detail 02/21/21 06:18 - Allergies Allergies/Adverse Reactions: Allergies Allergy/AdvReac Type Severity Reaction Status Date / Time No Known Allergies Allergy Verified 02/21/21 03:00 - Blood Blood Available: Yes Product(s) Available: PRBC, FFP - Anesthesia Plan Pre-Op Medication Ordered: None - Acknowledgements Anesthesia Type Planned: Spinal Pt an Appropriate Candidate for the Planned Anesthesia: Yes Alternatives and Risks of Anesthesia Discussed w Pt/Guardian: Yes Pt/Guardian Understands and Agrees with Anesthesia Plan: Yes Additional Comments: consent explained in pashto and provided written consent in pashto. 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: Musculoskeletal History: Reports: None Neurological History: Reports: None Psychiatric History: Reports: None Endocrine/Metabolic History: Reports: Obesity/BMI 30+ Hematologic History: Reports: None Immunologic History: Reports: None Oncologic (Cancer) History: Reports: None Dermatologic History: Reports: None - Infectious Disease History Other Infectious Disease History: Positive Hx Varicella - Past Surgical History Head Surgeries/Procedures: Reports: None HEENT Surgical History: Reports: Tonsillectomy Cardiovascular Surgical History: Reports: None Respiratory Surgical History: Reports: None GI Surgical History: Reports: None Female Surgical History: Reports: Section Endocrine Surgical History: Reports: None Neurological Surgical History: Reports: None Musculoskeletal Surgical History: Reports: None Oncologic Surgical History: Reports: None Dermatological Surgical History: Reports: None - SUBSTANCE USE Tobacco Use Status *Q: Never Tobacco User Second Hand Smoke Exposure: No Recreational Drug Use History: No - HOME MEDS Home Medications: Home Meds Pnv No.95/Ferrous Fum/Folic AC [ Tablet] 1 each PO DAILY 12/21/19 [History] - CURRENT (IN HOUSE) MEDS Current Meds: Current Medications Oxytocin/Sodium Chloride (Oxytocin 30 Unit In Ns 0.9% 500 Ml Premix) 30 unit in 500 mls @ 250 mls/hr IV TITRATE JASME[facility] Lactated Ringer's (Ringers, Lactated) 1,000 mls @ 500 mls/hr IV BOLUS JASMEET Last Admin: 02/21/21 07:19 Dose: 999 mls/hr Documented by: Lactated Ringer's (Ringers, Lactated) 1,000 mls @ 150 mls/hr IV ASDIRECTED JASMEET Sodium Chloride (Sodium Chloride 0.9% 10 Ml Syringe) 10 ml FLUSH ASDIRECTED PRN PRN Reason: Keep Vein Open Sodium Chloride (Sodium Chloride 0.9% 2.5 Ml Syringe) 2.5 ml FLUSH ASDIRECTED PRN PRN Reason: Keep Vein Open Sodium Chloride (Sodium Chloride 0.9% 10 Ml Sdv) 10 ml IV ASDIRECTED PRN PRN Reason: IV Use Discontinued Medications Bisacodyl (Bisacodyl 10 Mg Supp) 10 mg RECTAL ONETIME PRN PRN Reason: Constipation Carboprost Tromethamine (Carboprost Tromethamine 250 Mcg/1 Ml Amp) Confirm Administered Dose 250 mcg .ROUTE .STK-MED ONE Stop: 02/21/21 11:16 Carboprost Tromethamine (Carboprost Tromethamine 250 Mcg/1 Ml Amp) 250 mcg IM ONETIME ONE Stop: 02/21/21 12:00 Citric Acid/Sodium Citrate (Citric Acid/Sodium Citrate Solution 30 Ml Cup) 30 ml PO ONETIME ONE Stop: 02/21/21 03:02 Dexamethasone (Dexamethasone 4 Mg/Ml 5 Ml Mdv) Confirm Administered Dose 20 mg .ROUTE .STK-MED ONE Stop: 02/21/21 09:01 Diphenhydramine HCl (Diphenhydramine 50 Mg/Ml Sdv) 25 mg IVPUSH Q6H PRN PRN Reason: Itching or Nausea Docusate Sodium (Docusate Sodium 100 Mg Cap) 100 mg PO BID JASMEET Emollient Ointment (Lanolin 100% Cream 7 Gm Tube) 0 gm TOP ASDIRECTED PRN PRN Reason: Sore Nipples Ephedrine Sulfate (Ephedrine 50 Mg/Ml Sdv) Confirm Administered Dose 50 mg .ROUTE .STK-MED ONE Stop: 02/21/21 09:01 Etomidate (Etomidate 2 Mg/Ml 20 Ml Sdv) Confirm Administered Dose 40 mg IVPUSH .STK-MED ONE Stop: 02/21/21 12:28 Fentanyl (Fentanyl 250 Mcg/5 Ml Sdv) Confirm Administered Dose 250 mcg .ROUTE .STK-MED ONE Stop: 02/21/21 11:12 Glycopyrrolate (Glycopyrrolate 0.2 Mg/Ml Sdv) Confirm Administered Dose 0.4 mg .ROUTE .STK-MED ONE Stop: 02/21/21 09:01 Glycopyrrolate (Glycopyrrolate 0.2 Mg/Ml Sdv) Confirm Administered Dose 0.4 mg .ROUTE .STK-MED ONE Stop: 02/21/21 12:28 Cefazolin Sodium/Dextrose 1 gm (/ Premix) 50 mls @ 100 mls/hr IV ONETIME ONE Stop: 02/21/21 07:49 Cefazolin Sodium/Dextrose 2 gm (/ Premix) 50 mls @ 100 mls/hr IV ONETIME ONE Stop: 02/21/21 08:15 Cefazolin Sodium/Dextrose (Ancef 2 Gm/50 Ml) Confirm Administered Dose 50 mls @ as directed .ROUTE .STK-MED ONE Stop: 02/21/21 07:52 Lactated Ringer's (Ringers, Lactated) 1,000 mls @ 125 mls/hr IV ASDIRECTED JASMEET Tranexamic Acid 1,000 mg/ (Sodium Chloride) 110 mls @ 660 mls/hr IV ONETIME PRN PRN Reason: Bleeding Acetaminophen (Ofirmev 1000 Mg/100 Ml) Confirm Administered Dose 100 mls @ as directed .ROUTE .STK-MED ONE Stop: 02/21/21 09:01 Sodium Chloride (Normal Saline) Confirm Administered Dose 20 mls @ as directed .ROUTE .STK-MED ONE Stop: 02/21/21 09:02 Ibuprofen (Ibuprofen 800 Mg Tab) 800 mg PO Q8H PRN PRN Reason: Cramping Ketamine HCl (Ketamine 500 Mg/10 Ml Mdv) Confirm Administered Dose 500 mg .ROUTE .STK-MED ONE Stop: 02/21/21 11:13 Ketorolac Tromethamine (Ketorolac 30 Mg/Ml Sdv) 30 mg IVPUSH Q6H JASMEET Stop: 02/22/21 08:16 Ketorolac Tromethamine (Ketorolac 30 Mg/Ml Sdv) Confirm Administered Dose 30 mg .ROUTE .STK-MED ONE Stop: 02/21/21 09:01 Methylergonovine Maleate (Methylergonovine 0.2 Mg/1 Ml Amp) 0.2 mg IM ONETIME PRN PRN Reason: Excessive Vaginal Bleeding Methylergonovine Maleate (Methylergonovine 0.2 Mg/1 Ml Amp) Confirm Administered Dose 0.2 mg .ROUTE .STK-MED ONE Stop: 02/21/21 09:44 Methylergonovine Maleate (Methylergonovine 0.2 Mg/1 Ml Amp) Confirm Administered Dose 0.2 mg .ROUTE .STK-MED ONE Stop: 02/21/21 10:58 Miscellaneous Medication (Phenylephrine Hcl In 0.9% Nacl 1 Mg/10 Ml Syringe) Confirm Administered Dose 1 mg .ROUTE .STK-MED ONE Stop: 02/21/21 09:01 Miscellaneous Medication (Phenylephrine Hcl In 0.9% Nacl 1 Mg/10 Ml Syringe) Confirm Administered Dose 1 mg .ROUTE .STK-MED ONE Stop: 02/21/21 12:28 Misoprostol (Misoprostol 200 Mcg Tab) 1,000 mcg RECTAL ONETIME PRN PRN Reason: excessive bleeding Morphine Sulfate (Morphine Pf 10 Mg/10 Ml Sdv) Confirm Administered Dose 10 mg .ROUTE .STK-MED ONE Stop: 02/21/21 08:03 Ondansetron HCl (Ondansetron 4 Mg/2 Ml Sdv) 4 mg IVPUSH Q4H PRN PRN Reason: Nausea/Vomiting Ondansetron HCl (Ondansetron 4 Mg/2 Ml Sdv) Confirm Administered Dose 4 mg .ROUTE .STK-MED ONE Stop: 02/21/21 09:01 Oxycodone/Acetaminophen (Acetaminophen/Oxycodone 325-5 Mg Tab) 1 tab PO Q4H PRN PRN Reason: Pain (severe 7-10) Oxycodone/Acetaminophen (Acetaminophen/Oxycodone 325-5 Mg Tab) 2 tab PO Q4H PRN PRN Reason: Pain (severe 7-10) Oxytocin (Oxytocin 10 Units/1 Ml Sdv) 10 unit IM ASDIRECTED PRN PRN Reason: Excessive Vaginal Bleeding Oxytocin (Oxytocin 10 Units/1 Ml Sdv) Confirm Administered Dose 60 unit .ROUTE .STK-MED ONE Stop: 02/21/21 09:29 Phenylephrine HCl (Phenylephrine 1% 10 Mg/Ml Sdv) Confirm Administered Dose 20 mg .ROUTE .STK-MED ONE Stop: 02/21/21 12:28 Tranexamic Acid (Tranexamic Acid 1,000 Mg/10 Ml Amp) Confirm Administered Dose 1,000 mg .ROUTE .STK-MED ONE Stop: 02/21/21 09:55
--- NOTE | 2021-02-21 14:22 | PCM.POSTAN ---
POST ANESTHESIA ASSESSMENT - MENTAL STATUS Mental Status: Alert, Oriented - VITAL SIGNS Vital Signs: Last Vital Signs Temp 36.1 C 02/21/21 11:19 Pulse 124 H 02/21/21 11:19 Resp 17 02/21/21 11:19 BP 96/44 L 02/21/21 11:19 Pulse Ox - RESPIRATORY Respiratory Status: Respiratory Rate WNL, Airway Patent, O2 Saturation Stable - CARDIOVASCULAR CV Status: Pulse Rate WNL, Blood Pressure Stable - GASTROINTESTINAL GI Status: No Symptoms - PAIN Pain Score: 3 - POST OP HYDRATION Hydration Status: Adequate & Stable (VSS at this time. Surgeon aware of blood products given. )
--- NOTE | 2021-02-21 14:23 | PCM48HPAN ---
Post Anesthesia Note - EVALUATION WITHIN 48HRS OF ANESTHETIC Vital Signs in Normal Range: Yes Patient Participated in Evaluation: Yes Respiratory Function Stable: Yes Airway Patent: Yes Cardiovascular Function Stable: Yes Hydration Status Stable: Yes Pain Control Satisfactory: Yes Nausea and Vomiting Control Satisfactory: Yes Mental Status Recovered: Yes Vital Signs: Last Vital Signs Temp 36.1 C 02/21/21 11:19 Pulse 124 H 02/21/21 11:19 Resp 17 02/21/21 11:19 BP 96/44 L 02/21/21 11:19 Pulse Ox
--- NOTE | 2021-02-21 14:37 | PCM.SN.2 ---
- Free Text/Narrative Note: despite normotension in OR, upon arrival to recovery room ([id number]) pt noted to have hypotension. Doses of phenylephedrine given with rapid recovery of blood pressure. However, RN noted copious bleeding from Vagina and called for assistance from surgeons and midwives. Additional LR with Pitocin was hung and phenylephedrine GTT initiated. Second 18 Ga IV obtained with ultrasound guidance to right AC. I requested administration of PRBC given an estimated blood loss of 4000ml and administered first unit. staff counsel administered second unit by pump. Upon arrival of Dr. Vasquez an additional 560 blood was noted in the bed with additional bleeding from vagina and she requested additional 2 units PRBC be given. i administered the first unit rapidly due to attenuated blood pressure and need for phenylephedrine infusion coupled with tachycardia. the second unit was administered by nursing staff. Dr. Otto requested 1 unit of FFP which was administered by gravity feed. Clarissa Schwartz administered 1 GM of TXA during initial bleeding which infused in 1L LR and a second gram at the request of Dr. Vasquez. All hypotension was aggressively managed with phenylephedrine infusion. Time Documentation
[2021-02-21] MEDS ORDERED: Misoprostol 200 MCG Tab ONE (18:31)
[2021-02-22] MEDS: Lactated Ringers 1,000 ML IV SCH (04:16)
[2021-02-22 07:31] LABS: BLOOD UREA NITROGEN,BUN 10 mg/dL (7.0-18.0); CARBON DIOXIDE,CO2 23.4 mmol/L (21.0-32.0); CHLORIDE,CL 107 mmol/L (98-107); GLUCOSE RANDOM 73 mg/dL (74-106); SODIUM,NA 139 mmol/L (136-145)
--- NOTE | 2021-02-22 07:39 | OR ---
SURGEON: Mannie Otto MD DATE OF PROCEDURE: 02/21/2021 PREOPERATIVE DIAGNOSES: 1. Intrauterine , term. 2. Previous section x2. POSTOPERATIVE DIAGNOSES: 1. Intrauterine , term. 2. Previous section x2. OPERATION PERFORMED: Repeat low transverse section. PRIMARY SURGEON: Mannie Otto MD [place] MAORI: Mariela Kaminski, certified nurse ophthalmic surgeon. ANESTHESIA: Spinal. COMPLICATIONS: None. ESTIMATED BLOOD LOSS: 1200 mL. FINDINGS: Fetus with scores of 8 and 9. Normal uterus, tubes and ovary. INDICATION FOR SURGERY: This patient is term. She is 25. She is followed in our clinic, and she had two previous sections. She is admitted for elective repeat section. PROCEDURE IN DETAIL: Patient brought to the OR, properly identified. After adequate level of spinal anesthesia, with a Bravo catheter in the bladder, the patient identified and time-out taken, and prep and drape were done, a low-transverse Pfannenstiel skin incision through the old scar was done. Carmenza fascia and rectus fascia were opened in direction of the incision. The two recti muscles were and peritoneal cavity was entered. An uterine incision was done low-transverse, extended manually with hand, fetus was delivered and was in a vertex position, and handed to the resuscitating staff. The fetus cried immediately. scores reported to be 8 and 9. Attention was paid now to the lower uterine segment. There was extension to the left side of the incision and there was laceration of the uterine vessel, and using a [id number] suture, this vessel was suture-ligated and the bleeding stopped, and then repair of the lower uterine segment was done with 2-0 Vicryl continuous interlocking in two layers. The peritoneal cavity was evacuated completely from all blood and blood clot and closed with 3-0 Vicryl continuous. Prior to closing the peritoneal cavity, inspection of the entire incision was done. There was no oozing, no bleeding from the incision. Then, the rectus fascia was closed with #1 PDS continuous double strand and 3-0 Vicryl for Carmenza fascia and 3-0 on a Gonzalo needle for subcuticular closure of the skin. The instrument and sponge count was correct. The patient tolerated the procedure well, went to recovery room in stable general condition. HUGH / SARAH /[id number]
--- NOTE | 2021-02-22 08:51 | PCM.PNPP ---
- General Info Date of Service: 02/22/21 Admission Dx/Problem (Free Text): Patient Status Order with Admit Dx/Problem 02/21/21 03:01 Patient Status [ADT] Routine Admission Diagnosis/Problem Admission Diagnosis/Problem Functional Status: Reports: Pain Controlled, Tolerating Diet - Review of Systems General: Reports: No Symptoms HEENT: Reports: No Symptoms Pulmonary: Reports: No Symptoms Cardiovascular: Reports: No Symptoms Gastrointestinal: Reports: No Symptoms Genitourinary: Reports: No Symptoms Musculoskeletal: Reports: No Symptoms Skin: Reports: No Symptoms Neurological: Reports: No Symptoms Psychiatric: Reports: No Symptoms - General Info Date of Service: 02/22/21 - Patient Data Vital Signs - Most Recent: Last Vital Signs Temp 98.2 F 02/22/21 08:05 Pulse 86 02/22/21 08:05 Resp 16 02/22/21 08:05 BP 106/41 L 02/22/21 08:05 Pulse Ox 100 02/22/21 08:05 Weight - Most Recent: 220 lb Lab Results - Last 24 Hours: Laboratory Results - last 24 hr 02/21/21 02/21/21 02/21/21 Range/Units 06:18 09:48 11:18 WBC 16.36 H (4.0-11.0) K/uL RBC 4.62 (4.30-5.90) M/uL Hgb 9.3 L 13.1 (12.0-16.0) g/dL Hct 27.7 L 38.8 (36.0-46.0) % MCV 84.0 (80.0-98.0) fL MCH 28.4 (27.0-32.0) pg MCHC 33.8 (31.0-37.0) g/dL RDW Std Deviation 45.8 (28.0-62.0) fl RDW Coeff of Jael 15 (11.0-15.0) % Plt Count 219 (150-400) K/uL MPV 9.90 (7.40-12.00) fL Nucleated RBC % 0.0 /100WBC Nucleated RBCs # 0 K/uL INR APTT (18.6-31.3) SEC Fibrinogen (215-411) mg/dL Sodium (136-145) mmol/L Potassium (3.5-5.1) mmol/L Chloride (98-107) mmol/L Carbon Dioxide (21.0-32.0) mmol/L BUN (7.0-18.0) mg/dL Creatinine (0.6-1.0) mg/dL Est Cr Clr Drug Dosing mL/min Estimated GFR (MDRD) ml/min Glucose (74-106) mg/dL Calcium (8.5-10.1) mg/dL Total Bilirubin (0.2-1.0) mg/dL AST (15-37) IU/L ALT (14-63) IU/L Alkaline Phosphatase (46-116) U/L Total Protein (6.4-8.2) g/dL Albumin (3.4-5.0) g/dL Globulin (2.6-4.0) g/dL Albumin/Globulin Ratio (0.9-1.6) Blood Type O POSITIVE Antibody Screen NEGATIVE Crossmatch See Detail 02/21/21 02/21/21 02/21/21 Range/Units 11:18 11:18 17:31 WBC (4.0-11.0) K/uL RBC (4.30-5.90) M/uL Hgb 12.8 (12.0-16.0) g/dL Hct 36.5 (36.0-46.0) % MCV (80.0-98.0) fL MCH (27.0-32.0) pg MCHC (31.0-37.0) g/dL RDW Std Deviation (28.0-62.0) fl RDW Coeff of Jael (11.0-15.0) % Plt Count (150-400) K/uL MPV (7.40-12.00) fL Nucleated RBC % /100WBC Nucleated RBCs # K/uL INR 1.01 APTT 25.4 (18.6-31.3) SEC Fibrinogen 316 (215-411) mg/dL Sodium (136-145) mmol/L Potassium (3.5-5.1) mmol/L Chloride (98-107) mmol/L Carbon Dioxide (21.0-32.0) mmol/L BUN (7.0-18.0) mg/dL Creatinine (0.6-1.0) mg/dL Est Cr Clr Drug Dosing mL/min Estimated GFR (MDRD) ml/min Glucose (74-106) mg/dL Calcium (8.5-10.1) mg/dL Total Bilirubin (0.2-1.0) mg/dL AST (15-37) IU/L ALT (14-63) IU/L Alkaline Phosphatase (46-116) U/L Total Protein (6.4-8.2) g/dL Albumin (3.4-5.0) g/dL Globulin (2.6-4.0) g/dL Albumin/Globulin Ratio (0.9-1.6) Blood Type Antibody Screen Crossmatch 02/21/21 02/22/21 02/22/21 Range/Units 20:31 05:14 05:14 WBC 11.68 H (4.0-11.0) K/uL RBC 3.11 L (4.30-5.90) M/uL Hgb 11.4 L 8.9 L (12.0-16.0) g/dL Hct 32.3 L 25.7 L (36.0-46.0) % MCV 82.6 (80.0-98.0) fL MCH 28.6 (27.0-32.0) pg MCHC 34.6 (31.0-37.0) g/dL RDW Std Deviation 46.7 (28.0-62.0) fl RDW Coeff of Jael 16 H (11.0-15.0) % Plt Count 115 L (150-400) K/uL MPV 10.40 (7.40-12.00) fL Nucleated RBC % 0.0 /100WBC Nucleated RBCs # 0 K/uL INR APTT (18.6-31.3) SEC Fibrinogen (215-411) mg/dL Sodium 139 (136-145) mmol/L Potassium 4.0 (3.5-5.1) mmol/L Chloride 107 (98-107) mmol/L Carbon Dioxide 23.4 (21.0-32.0) mmol/L BUN 10 (7.0-18.0) mg/dL Creatinine 0.7 (0.6-1.0) mg/dL Est Cr Clr Drug Dosing 108.63 mL/min Estimated GFR (MDRD) > 60.0 ml/min Glucose 73 L (74-106) mg/dL Calcium 7.1 L (8.5-10.1) mg/dL Total Bilirubin 0.5 (0.2-1.0) mg/dL AST 37 (15-37) IU/L ALT 28 (14-63) IU/L Alkaline Phosphatase 102 (46-116) U/L Total Protein 3.8 L (6.4-8.2) g/dL Albumin 1.6 L (3.4-5.0) g/dL Globulin 2.2 L (2.6-4.0) g/dL Albumin/Globulin Ratio 0.7 L (0.9-1.6) Blood Type Antibody Screen Crossmatch Med Orders - Current: Current Medications Oxytocin/Sodium Chloride (Oxytocin 30 Unit In Ns 0.9% 500 Ml Premix) 30 unit in 500 mls @ 250 mls/hr IV TITRATE [facility] Lactated Ringer's (Ringers, Lactated) 1,000 mls @ 500 mls/hr IV BOLUS [facility] Last Admin: 02/21/21 07:19 Dose: 999 mls/hr Documented by: Lactated Ringer's (Ringers, Lactated) 1,000 mls @ 150 mls/hr IV ASDIRECTED [facility] Last Admin: 02/22/21 04:16 Dose: 150 mls/hr Documented by: Oxycodone/Acetaminophen (Acetaminophen/Oxycodone 325-5 Mg Tab) 2 tab PO Q6H PRN PRN Reason: Pain (severe 7-10) Sodium Chloride (Sodium Chloride 0.9% 10 Ml Syringe) 10 ml FLUSH ASDIRECTED PRN PRN Reason: Keep Vein Open Sodium Chloride (Sodium Chloride 0.9% 2.5 Ml Syringe) 2.5 ml FLUSH ASDIRECTED PRN PRN Reason: Keep Vein Open Sodium Chloride (Sodium Chloride 0.9% 10 Ml Sdv) 10 ml IV ASDIRECTED PRN PRN Reason: IV Use Discontinued Medications Bisacodyl (Bisacodyl 10 Mg Supp) 10 mg RECTAL ONETIME PRN PRN Reason: Constipation Carboprost Tromethamine (Carboprost Tromethamine 250 Mcg/1 Ml Amp) Confirm Administered Dose 250 mcg .ROUTE .STK-MED ONE Stop: 02/21/21 11:16 Last Admin: 02/21/21 11:18 Dose: 250 mcg Documented by: Carboprost Tromethamine (Carboprost Tromethamine 250 Mcg/1 Ml Amp) 250 mcg IM ONETIME ONE Stop: 02/21/21 12:00 Citric Acid/Sodium Citrate (Citric Acid/Sodium Citrate Solution 30 Ml Cup) 30 ml PO ONETIME ONE Stop: 02/21/21 03:02 Dexamethasone (Dexamethasone 4 Mg/Ml 5 Ml Mdv) Confirm Administered Dose 20 mg .ROUTE .STK-MED ONE Stop: 02/21/21 09:01 Diphenhydramine HCl (Diphenhydramine 50 Mg/Ml Sdv) 25 mg IVPUSH Q6H PRN PRN Reason: Itching or Nausea Docusate Sodium (Docusate Sodium 100 Mg Cap) 100 mg PO BID JASMEET Emollient Ointment (Lanolin 100% Cream 7 Gm Tube) 0 gm TOP ASDIRECTED PRN PRN Reason: Sore Nipples Ephedrine Sulfate (Ephedrine 50 Mg/Ml Sdv) Confirm Administered Dose 50 mg .ROUTE .STK-MED ONE Stop: 02/21/21 09:01 Etomidate (Etomidate 2 Mg/Ml 20 Ml Sdv) Confirm Administered Dose 40 mg IVPUSH .STK-MED ONE Stop: 02/21/21 12:28 Fentanyl (Fentanyl 250 Mcg/5 Ml Sdv) Confirm Administered Dose 250 mcg .ROUTE .STK-MED ONE Stop: 02/21/21 11:12 Glycopyrrolate (Glycopyrrolate 0.2 Mg/Ml Sdv) Confirm Administered Dose 0.4 mg .ROUTE .STK-MED ONE Stop: 02/21/21 09:01 Glycopyrrolate (Glycopyrrolate 0.2 Mg/Ml Sdv) Confirm Administered Dose 0.4 mg .ROUTE .STK-MED ONE Stop: 02/21/21 12:28 Cefazolin Sodium/Dextrose 1 gm (/ Premix) 50 mls @ 100 mls/hr IV ONETIME ONE Stop: 02/21/21 07:49 Cefazolin Sodium/Dextrose 2 gm (/ Premix) 50 mls @ 100 mls/hr IV ONETIME ONE Stop: 02/21/21 08:15 Last Admin: 02/21/21 15:34 Dose: Not Given Documented by: Cefazolin Sodium/Dextrose (Ancef 2 Gm/50 Ml) Confirm Administered Dose 50 mls @ as directed .ROUTE .STK-MED ONE Stop: 02/21/21 07:52 Last Admin: 02/21/21 15:35 Dose: Not Given Documented by: Lactated Ringer's (Ringers, Lactated) 1,000 mls @ 125 mls/hr IV ASDIRECTED [facility] Tranexamic Acid 1,000 mg/ (Sodium Chloride) 110 mls @ 660 mls/hr IV ONETIME PRN PRN Reason: Bleeding Last Admin: 02/21/21 11:30 Dose: 999 mls/hr Documented by: Acetaminophen (Ofirmev 1000 Mg/100 Ml) Confirm Administered Dose 100 mls @ as directed .ROUTE .STK-MED ONE Stop: 02/21/21 09:01 Sodium Chloride (Normal Saline) Confirm Administered Dose 20 mls @ as directed .ROUTE .STK-MED ONE Stop: 02/21/21 09:02 Ibuprofen (Ibuprofen 800 Mg Tab) 800 mg PO Q8H PRN PRN Reason: Cramping Ketamine HCl (Ketamine 500 Mg/10 Ml Mdv) Confirm Administered Dose 500 mg .ROUTE .STK-MED ONE Stop: 02/21/21 11:13 Ketorolac Tromethamine (Ketorolac 30 Mg/Ml Sdv) 30 mg IVPUSH Q6H [facility] Stop: 02/22/21 08:16 Ketorolac Tromethamine (Ketorolac 30 Mg/Ml Sdv) Confirm Administered Dose 30 mg .ROUTE .STK-MED ONE Stop: 02/21/21 09:01 Methylergonovine Maleate (Methylergonovine 0.2 Mg/1 Ml Amp) 0.2 mg IM ONETIME PRN PRN Reason: Excessive Vaginal Bleeding Methylergonovine Maleate (Methylergonovine 0.2 Mg/1 Ml Amp) Confirm Administered Dose 0.2 mg .ROUTE .STK-MED ONE Stop: 02/21/21 09:44 Last Admin: 02/21/21 09:46 Dose: 0.2 mg Documented by: Methylergonovine Maleate (Methylergonovine 0.2 Mg/1 Ml Amp) Confirm Administered Dose 0.2 mg .ROUTE .STK-MED ONE Stop: 02/21/21 10:58 Last Admin: 02/21/21 11:00 Dose: 0.2 mg Documented by: Miscellaneous Medication (Phenylephrine Hcl In 0.9% Nacl 1 Mg/10 Ml Syringe) Confirm Administered Dose 1 mg .ROUTE .STK-MED ONE Stop: 02/21/21 09:01 Miscellaneous Medication (Phenylephrine Hcl In 0.9% Nacl 1 Mg/10 Ml Syringe) Confirm Administered Dose 1 mg .ROUTE .STK-MED ONE Stop: 02/21/21 12:28 Misoprostol (Misoprostol 200 Mcg Tab) 1,000 mcg RECTAL ONETIME PRN PRN Reason: excessive bleeding Last Admin: 02/21/21 10:56 Dose: 1,000 mcg Documented by: Misoprostol (Misoprostol 200 Mcg Tab) Confirm Administered Dose 1,000 mcg .ROUTE .STK-MED ONE Stop: 02/21/21 18:32 Morphine Sulfate (Morphine Pf 10 Mg/10 Ml Sdv) Confirm Administered Dose 10 mg .ROUTE .STK-MED ONE Stop: 02/21/21 08:03 Ondansetron HCl (Ondansetron 4 Mg/2 Ml Sdv) 4 mg IVPUSH Q4H PRN PRN Reason: Nausea/Vomiting Ondansetron HCl (Ondansetron 4 Mg/2 Ml Sdv) Confirm Administered Dose 4 mg .ROUTE .STK-MED ONE Stop: 02/21/21 09:01 Oxycodone/Acetaminophen (Acetaminophen/Oxycodone 325-5 Mg Tab) 1 tab PO Q4H PRN PRN Reason: Pain (severe 7-10) Oxycodone/Acetaminophen (Acetaminophen/Oxycodone 325-5 Mg Tab) 2 tab PO Q4H PRN PRN Reason: Pain (severe 7-10) Oxytocin (Oxytocin 10 Units/1 Ml Sdv) 10 unit IM ASDIRECTED PRN PRN Reason: Excessive Vaginal Bleeding Oxytocin (Oxytocin 10 Units/1 Ml Sdv) Confirm Administered Dose 60 unit .ROUTE .STK-MED ONE Stop: 02/21/21 09:29 Oxytocin (Oxytocin 10 Units/1 Ml Sdv) Confirm Administered Dose 30 unit .ROUTE .STK-MED ONE Stop: 02/21/21 15:34 Phenylephrine HCl (Phenylephrine 1% 10 Mg/Ml Sdv) Confirm Administered Dose 20 mg .ROUTE .STK-MED ONE Stop: 02/21/21 12:28 Tranexamic Acid (Tranexamic Acid 1,000 Mg/10 Ml Amp) Confirm Administered Dose 1,000 mg .ROUTE .STK-MED ONE Stop: 02/21/21 09:55 Tranexamic Acid (Tranexamic Acid 1,000 Mg/10 Ml Amp) Confirm Administered Dose 1,000 mg .ROUTE .SHADOW-MED ONE Stop: 02/21/21 18:31 - Infant Interaction Disposition, : [place] at Bedside Support Person: - Recovery Exam Fundal Tone: Firm Fundal Level: At Umbilicus Fundal Placement: Midline Lochia Amount: Scant Lochia Color: Rubra/Red Perineum Description: Intact, Minimal Bruising/Swelling Episiotomy/Laceration: None Bladder Status: Indwelling Catheter in Place Urinary Elimination: Indwelling Catheter - Exam General: Alert, Oriented, Cooperative, No Acute Distress Lungs: Normal Respiratory Effort Cardiovascular: Regular Rhythm, Tachycardia GI/Abdominal Exam: Soft, Non-Tender Extremities: Normal Range of Motion, Non-Tender, Normal Capillary Refill Skin: Warm, Dry, Intact Neurological: No New Focal Deficit, Normal Speech, Sensation Intact Psy/Mental Status: Alert, Normal Affect, Normal Mood - Problem List & Annotations (1) delivery, delivered, current hospitalization SNOMED Code(s): 453366569 Code(s): O82 - ENCOUNTER FOR DELIVERY WITHOUT INDICATION Status: Acute Priority: High Current Visit: Yes (2) hemorrhage SNOMED Code(s): 29696302 Code(s): O72.1 - OTHER IMMEDIATE HEMORRHAGE Status: Acute Priority: High Current Visit: Yes - Problem List Review Problem List Initiated/Reviewed/Updated: Yes - My Orders Last 24 Hours: My Active Orders 02/21/21 Dinner Regular Diet [DIET] - Plan Plan:: Term admitted for elective repeat C/section. PP Day1 A: Doing well; pain well controlled; tolerating diet; bonding well with baby. P: Routine plan of care. Dr. Otto updated.
[2021-02-22] MEDS ORDERED: Furosemide 20 MG/2 ML VIAL IVPUSH ONE (09:00)
[2021-02-22] MEDS: Acetaminophen/oxyCODONE 325-5 MG Tab PO PRN ×3 (09:30→22:40)
[2021-02-22] MEDS: Iron Polysaccharides Complex 150 MG Cap PO SCH (17:34)
[2021-02-22] MEDS: Docusate Sodium 100 MG Cap PO SCH (22:39)
[2021-02-23] MEDS: Acetaminophen/oxyCODONE 325-5 MG Tab PO PRN ×2 (05:13→12:13)
--- NOTE | 2021-02-23 05:48 | PCM.PNPP ---
- General Info Date of Service: 02/23/21 Admission Dx/Problem (Free Text): Patient Status Order with Admit Dx/Problem 02/21/21 03:01 Patient Status [ADT] Routine Admission Diagnosis/Problem Admission Diagnosis/Problem Brittney is a 25 yo current PPD2 S/P uncomplicated repeat LTCS to term NBF complicated with hemorrhage (>4000 ml per report) treated with 4 units PRBCs and 1 unit FFP. O pos, Ab screen neg, RI, GBS neg. Patient has no complaints or concerns at this time. Patient is exclusively well, resting comfortably in bed with in arms. Patient reports she is eating, voiding, ambulating independently and without difficulty. Patient denies any problems or concerns at this time except mild-moderate intermittent uterine cramping relieved with Percocet. Patient reports small vaginal bleeding with no clots. Low transverse incision dressing clean, dry, intact. Functional Status: Reports: Pain Controlled, Tolerating Diet, Ambulating, Urinating - Review of Systems General: Reports: No Symptoms HEENT: Reports: No Symptoms Pulmonary: Reports: No Symptoms Cardiovascular: Reports: No Symptoms Gastrointestinal: Reports: No Symptoms Genitourinary: Reports: No Symptoms Musculoskeletal: Reports: No Symptoms Skin: Reports: No Symptoms Neurological: Reports: No Symptoms Psychiatric: Reports: No Symptoms - General Info Date of Service: 02/23/21 - Patient Data Vital Signs - Most Recent: Last Vital Signs Temp 97.4 F 02/22/21 20:00 Pulse 94 02/22/21 20:00 Resp 18 02/22/21 20:00 BP 105/58 L 02/22/21 20:00 Pulse Ox 96 02/22/21 20:00 Weight - Most Recent: 220 lb I&O - Last 24 Hours: Intake & Output 02/22/21 02/22/21 02/23/21 14:59 22:59 06:59 Output Total 1930 550 Balance -1930 -550 Lab Results - Last 24 Hours: Laboratory Results - last 24 hr 02/21/21 02/21/21 02/22/21 Range/Units 06:18 06:18 05:14 WBC 11.68 H (4.0-11.0) K/uL RBC 3.11 L (4.30-5.90) M/uL Hgb 8.9 L (12.0-16.0) g/dL Hct 25.7 L (36.0-46.0) % MCV 82.6 (80.0-98.0) fL MCH 28.6 (27.0-32.0) pg MCHC 34.6 (31.0-37.0) g/dL RDW Std Deviation 46.7 (28.0-62.0) fl RDW Coeff of Jael 16 H (11.0-15.0) % Plt Count 115 L (150-400) K/uL MPV 10.40 (7.40-12.00) fL Nucleated RBC % 0.0 /100WBC Nucleated RBCs # 0 K/uL Sodium (136-145) mmol/L Potassium (3.5-5.1) mmol/L Chloride (98-107) mmol/L Carbon Dioxide (21.0-32.0) mmol/L BUN (7.0-18.0) mg/dL Creatinine (0.6-1.0) mg/dL Est Cr Clr Drug Dosing mL/min Estimated GFR (MDRD) ml/min Glucose (74-106) mg/dL Calcium (8.5-10.1) mg/dL Total Bilirubin (0.2-1.0) mg/dL AST (15-37) IU/L ALT (14-63) IU/L Alkaline Phosphatase (46-116) U/L Total Protein (6.4-8.2) g/dL Albumin (3.4-5.0) g/dL Globulin (2.6-4.0) g/dL Albumin/Globulin Ratio (0.9-1.6) RPR Non-Reac (Non-Reac) Crossmatch See Detail 02/22/21 Range/Units 05:14 WBC (4.0-11.0) K/uL RBC (4.30-5.90) M/uL Hgb (12.0-16.0) g/dL Hct (36.0-46.0) % MCV (80.0-98.0) fL MCH (27.0-32.0) pg MCHC (31.0-37.0) g/dL RDW Std Deviation (28.0-62.0) fl RDW Coeff of Jael (11.0-15.0) % Plt Count (150-400) K/uL MPV (7.40-12.00) fL Nucleated RBC % /100WBC Nucleated RBCs # K/uL Sodium 139 (136-145) mmol/L Potassium 4.0 (3.5-5.1) mmol/L Chloride 107 (98-107) mmol/L Carbon Dioxide 23.4 (21.0-32.0) mmol/L BUN 10 (7.0-18.0) mg/dL Creatinine 0.7 (0.6-1.0) mg/dL Est Cr Clr Drug Dosing 108.63 mL/min Estimated GFR (MDRD) > 60.0 ml/min Glucose 73 L (74-106) mg/dL Calcium 7.1 L (8.5-10.1) mg/dL Total Bilirubin 0.5 (0.2-1.0) mg/dL AST 37 (15-37) IU/L ALT 28 (14-63) IU/L Alkaline Phosphatase 102 (46-116) U/L Total Protein 3.8 L (6.4-8.2) g/dL Albumin 1.6 L (3.4-5.0) g/dL Globulin 2.2 L (2.6-4.0) g/dL Albumin/Globulin Ratio 0.7 L (0.9-1.6) RPR (Non-Reac) Crossmatch Med Orders - Current: Current Medications Docusate Sodium (Docusate Sodium 100 Mg Cap) 100 mg PO BID [facility] Last Admin: 02/22/21 22:39 Dose: 100 mg Documented by: Oxytocin/Sodium Chloride (Oxytocin 30 Unit In Ns 0.9% 500 Ml Premix) 30 unit in 500 mls @ 250 mls/hr IV TITRATE [facility] Lactated Ringer's (Ringers, Lactated) 1,000 mls @ 500 mls/hr IV BOLUS [facility] Last Admin: 02/21/21 07:19 Dose: 999 mls/hr Documented by: Lactated Ringer's (Ringers, Lactated) 1,000 mls @ 150 mls/hr IV ASDIRECTED [facility] Last Admin: 02/22/21 04:16 Dose: 150 mls/hr Documented by: Oxycodone/Acetaminophen (Acetaminophen/Oxycodone 325-5 Mg Tab) 2 tab PO Q6H PRN PRN Reason: Pain (severe 7-10) Last Admin: 02/23/21 05:13 Dose: 2 tab Documented by: Polysaccharide Iron Complex (Iron Polysaccharides Complex 150 Mg Cap) 150 mg PO DAILY [facility] Last Admin: 02/22/21 17:34 Dose: 150 mg Documented by: Sodium Chloride (Sodium Chloride 0.9% 10 Ml Syringe) 10 ml FLUSH ASDIRECTED PRN PRN Reason: Keep Vein Open Sodium Chloride (Sodium Chloride 0.9% 2.5 Ml Syringe) 2.5 ml FLUSH ASDIRECTED PRN PRN Reason: Keep Vein Open Sodium Chloride (Sodium Chloride 0.9% 10 Ml Sdv) 10 ml IV ASDIRECTED PRN PRN Reason: IV Use Discontinued Medications Bisacodyl (Bisacodyl 10 Mg Supp) 10 mg RECTAL ONETIME PRN PRN Reason: Constipation Carboprost Tromethamine (Carboprost Tromethamine 250 Mcg/1 Ml Amp) Confirm Administered Dose 250 mcg .ROUTE .STK-MED ONE Stop: 02/21/21 11:16 Last Admin: 02/21/21 11:18 Dose: 250 mcg Documented by: Carboprost Tromethamine (Carboprost Tromethamine 250 Mcg/1 Ml Amp) 250 mcg IM ONETIME ONE Stop: 02/21/21 12:00 Last Admin: 02/22/21 19:34 Dose: Not Given Documented by: Citric Acid/Sodium Citrate (Citric Acid/Sodium Citrate Solution 30 Ml Cup) 30 ml PO ONETIME ONE Stop: 02/21/21 03:02 Last Admin: 02/22/21 19:33 Dose: Not Given Documented by: Dexamethasone (Dexamethasone 4 Mg/Ml 5 Ml Mdv) Confirm Administered Dose 20 mg .ROUTE .STK-MED ONE Stop: 02/21/21 09:01 Diphenhydramine HCl (Diphenhydramine 50 Mg/Ml Sdv) 25 mg IVPUSH Q6H PRN PRN Reason: Itching or Nausea Docusate Sodium (Docusate Sodium 100 Mg Cap) 100 mg PO BID [facility] Emollient Ointment (Lanolin 100% Cream 7 Gm Tube) 0 gm TOP ASDIRECTED PRN PRN Reason: Sore Nipples Ephedrine Sulfate (Ephedrine 50 Mg/Ml Sdv) Confirm Administered Dose 50 mg .ROUTE .STK-MED ONE Stop: 02/21/21 09:01 Etomidate (Etomidate 2 Mg/Ml 20 Ml Sdv) Confirm Administered Dose 40 mg IVPUSH .STK-MED ONE Stop: 02/21/21 12:28 Fentanyl (Fentanyl 250 Mcg/5 Ml Sdv) Confirm Administered Dose 250 mcg .ROUTE .STK-MED ONE Stop: 02/21/21 11:12 Furosemide (Furosemide 20 Mg/2 Ml Vial) 20 mg IVPUSH NOW ONE Stop: 02/22/21 09:01 Last Admin: 02/22/21 09:32 Dose: 20 mg Documented by: Glycopyrrolate (Glycopyrrolate 0.2 Mg/Ml Sdv) Confirm Administered Dose 0.4 mg .ROUTE .STK-MED ONE Stop: 02/21/21 09:01 Glycopyrrolate (Glycopyrrolate 0.2 Mg/Ml Sdv) Confirm Administered Dose 0.4 mg .ROUTE .STK-MED ONE Stop: 02/21/21 12:28 Cefazolin Sodium/Dextrose 1 gm (/ Premix) 50 mls @ 100 mls/hr IV ONETIME ONE Stop: 02/21/21 07:49 Cefazolin Sodium/Dextrose 2 gm (/ Premix) 50 mls @ 100 mls/hr IV ONETIME ONE Stop: 02/21/21 08:15 Last Admin: 02/21/21 15:34 Dose: Not Given Documented by: Cefazolin Sodium/Dextrose (Ancef 2 Gm/50 Ml) Confirm Administered Dose 50 mls @ as directed .ROUTE .STK-MED ONE Stop: 02/21/21 07:52 Last Admin: 02/21/21 15:35 Dose: Not Given Documented by: Lactated Ringer's (Ringers, Lactated) 1,000 mls @ 125 mls/hr IV ASDIRECTED [facility] Tranexamic Acid 1,000 mg/ (Sodium Chloride) 110 mls @ 660 mls/hr IV ONETIME PRN PRN Reason: Bleeding Last Admin: 02/21/21 11:30 Dose: 999 mls/hr Documented by: Acetaminophen (Ofirmev 1000 Mg/100 Ml) Confirm Administered Dose 100 mls @ as directed .ROUTE .STK-MED ONE Stop: 02/21/21 09:01 Sodium Chloride (Normal Saline) Confirm Administered Dose 20 mls @ as directed .ROUTE .STK-MED ONE Stop: 02/21/21 09:02 Ibuprofen (Ibuprofen 800 Mg Tab) 800 mg PO Q8H PRN PRN Reason: Cramping Ketamine HCl (Ketamine 500 Mg/10 Ml Mdv) Confirm Administered Dose 500 mg .ROUTE .STK-MED ONE Stop: 02/21/21 11:13 Ketorolac Tromethamine (Ketorolac 30 Mg/Ml Sdv) 30 mg IVPUSH Q6H [facility] Stop: 02/22/21 08:16 Ketorolac Tromethamine (Ketorolac 30 Mg/Ml Sdv) Confirm Administered Dose 30 mg .ROUTE .STK-MED ONE Stop: 02/21/21 09:01 Methylergonovine Maleate (Methylergonovine 0.2 Mg/1 Ml Amp) 0.2 mg IM ONETIME PRN PRN Reason: Excessive Vaginal Bleeding Methylergonovine Maleate (Methylergonovine 0.2 Mg/1 Ml Amp) Confirm Administered Dose 0.2 mg .ROUTE .STK-MED ONE Stop: 02/21/21 09:44 Last Admin: 02/21/21 09:46 Dose: 0.2 mg Documented by: Methylergonovine Maleate (Methylergonovine 0.2 Mg/1 Ml Amp) Confirm Administered Dose 0.2 mg .ROUTE .STK-MED ONE Stop: 02/21/21 10:58 Last Admin: 02/21/21 11:00 Dose: 0.2 mg Documented by: Miscellaneous Medication (Phenylephrine Hcl In 0.9% Nacl 1 Mg/10 Ml Syringe) Confirm Administered Dose 1 mg .ROUTE .STK-MED ONE Stop: 02/21/21 09:01 Miscellaneous Medication (Phenylephrine Hcl In 0.9% Nacl 1 Mg/10 Ml Syringe) Confirm Administered Dose 1 mg .ROUTE .STK-MED ONE Stop: 02/21/21 12:28 Misoprostol (Misoprostol 200 Mcg Tab) 1,000 mcg RECTAL ONETIME PRN PRN Reason: excessive bleeding Last Admin: 02/21/21 10:56 Dose: 1,000 mcg Documented by: Misoprostol (Misoprostol 200 Mcg Tab) Confirm Administered Dose 1,000 mcg .ROUTE .STK-MED ONE Stop: 02/21/21 18:32 Last Admin: 02/22/21 19:35 Dose: Not Given Documented by: Morphine Sulfate (Morphine Pf 10 Mg/10 Ml Sdv) Confirm Administered Dose 10 mg .ROUTE .STK-MED ONE Stop: 02/21/21 08:03 Ondansetron HCl (Ondansetron 4 Mg/2 Ml Sdv) 4 mg IVPUSH Q4H PRN PRN Reason: Nausea/Vomiting Ondansetron HCl (Ondansetron 4 Mg/2 Ml Sdv) Confirm Administered Dose 4 mg .ROUTE .STK-MED ONE Stop: 02/21/21 09:01 Oxycodone/Acetaminophen (Acetaminophen/Oxycodone 325-5 Mg Tab) 1 tab PO Q4H PRN PRN Reason: Pain (severe 7-10) Oxycodone/Acetaminophen (Acetaminophen/Oxycodone 325-5 Mg Tab) 2 tab PO Q4H PRN PRN Reason: Pain (severe 7-10) Oxytocin (Oxytocin 10 Units/1 Ml Sdv) 10 unit IM ASDIRECTED PRN PRN Reason: Excessive Vaginal Bleeding Oxytocin (Oxytocin 10 Units/1 Ml Sdv) Confirm Administered Dose 60 unit .ROUTE .STK-MED ONE Stop: 02/21/21 09:29 Oxytocin (Oxytocin 10 Units/1 Ml Sdv) Confirm Administered Dose 30 unit .ROUTE .STK-MED ONE Stop: 02/21/21 15:34 Phenylephrine HCl (Phenylephrine 1% 10 Mg/Ml Sdv) Confirm Administered Dose 20 mg .ROUTE .STK-MED ONE Stop: 02/21/21 12:28 Tranexamic Acid (Tranexamic Acid 1,000 Mg/10 Ml Amp) Confirm Administered Dose 1,000 mg .ROUTE .STK-MED ONE Stop: 02/21/21 09:55 Tranexamic Acid (Tranexamic Acid 1,000 Mg/10 Ml Amp) Confirm Administered Dose 1,000 mg .ROUTE .STK-MED ONE Stop: 02/21/21 18:31 Last Admin: 02/22/21 19:35 Dose: Not Given Documented by: - Interaction Disposition, : [place] at Bedside Interaction: Not Interacting Infant Feeding: Breastfed Infant; Nursed Well, Continues to Breastfeed, Encouraged to Breastfeed Support Person: - Recovery Exam Fundal Tone: Firm Fundal Level: At Umbilicus Fundal Placement: Midline Lochia Amount: Small Lochia Color: Rubra/Red Perineum Description: Intact, Minimal Bruising/Swelling Episiotomy/Laceration: None Bladder Status: Voiding Urinary Elimination: Voided - Exam General: Alert, Oriented, Cooperative, No Acute Distress HEENT: Pupils Equal, Mucous Membr. Moist/[place] Neck: Supple Lungs: Clear to Auscultation, Normal Respiratory Effort Cardiovascular: Regular Rate, Regular Rhythm GI/Abdominal Exam: Normal Bowel Sounds, Soft, Non-Tender, No Organomegaly, No Distention, No Abnormal Bruit, No Mass, Pelvis Stable Extremities: Normal Inspection, Normal Range of Motion, Non-Tender, No Pedal Edema, Normal Capillary Refill Skin: Warm, Dry, Intact Wound/Incisions: Dressing Dry and Intact Neurological: No New Focal Deficit Psy/Mental Status: Alert, Normal Affect, Normal Mood - Problem List & Annotations (1) delivery, delivered, current hospitalization SNOMED Code(s): 731820246 Code(s): O82 - ENCOUNTER FOR DELIVERY WITHOUT INDICATION Status: Acute Priority: High Current Visit: Yes (2) hemorrhage SNOMED Code(s): 88129403 Code(s): O72.1 - OTHER IMMEDIATE HEMORRHAGE Status: Acute Priority: High Current Visit: Yes - Problem List Review Problem List Initiated/Reviewed/Updated: Yes - My Orders Last 24 Hours: My Active Orders 02/22/21 16:00 Iron Polysaccharides Complex [Ferrex 150] 150 mg PO DAILY 02/22/21 21:00 Docusate Sodium [Colace] 100 mg PO BID 02/23/21 05:12 HEMOGLOBIN/HEMATOCRIT,HH [HEME] Routine - Plan Plan:: Plan to continue inpatient course. Hemodynamically stable, afebrile. H/H pending. Hemoglobin 8.9 one day ago, otherwise asymptomatic, continue 1 tablet 150 mg iron supplementation daily x 8 weeks, F/U as indicated. Continue PO analgesia as ordered. Continue EBFing, eating, voiding, ambulating in dependently. Plan to D/C in pm pending labs and Dr. Otto's discharge. Dr. Otto notified and agreeable with POC.
[2021-02-23] MEDS: Docusate Sodium 100 MG Cap PO SCH (08:08)
[2021-02-23] MEDS: Iron Polysaccharides Complex 150 MG Cap PO SCH (08:08)
--- NOTE | 2021-02-23 10:09 | PCM.DCSUM1 ---
Discharge Summary - Hospital Course Diagnosis: Stroke: No - Discharge Data Discharge Date: 02/23/21 Discharge Disposition: Home, Self-Care 01 Condition: Good - Referral to Home Health Primary Care Physician: PCP None - Patient Summary/Data Operative Procedure(s) Performed: Repeat C/section - Patient Instructions Diet: Usual Diet as Tolerated Activity: As Tolerated Driving: Do Not Drive Showering/Bathing: May Shower Wound/Incision Care: Keep Operative Site/Wound Site Clean and Dry Notify Provider of: Fever, Increased Pain, Swelling and Redness, Drainage, Nausea and/or Vomiting - Discharge Plan Home Medications: Home Meds Pnv No.95/Ferrous Fum/Folic AC [ Tablet] 1 each PO DAILY 12/21/19 [History] Patient Handouts: Hemorrhage, Baby Blues, Care After Delivery Referrals: [facility] [Ordering Only Provider] - Mannie Otto MD [Physician] - 02/27/21 10:45 am (1-week incision check 02/27/21@1045. 2nd follow-up: 04/05/21 @ 1:30pm with Dr Otto.) - Discharge Summary/Plan Comment DC Time >30 min.: Yes Total # of Minutes for Discharge Time: 30 - General Info Date of Service: 02/23/21 Functional Status: Reports: Pain Controlled - Review of Systems General: Reports: No Symptoms HEENT: Reports: No Symptoms Pulmonary: Reports: No Symptoms Cardiovascular: Reports: No Symptoms Gastrointestinal: Reports: No Symptoms Genitourinary: Reports: No Symptoms Musculoskeletal: Reports: No Symptoms Skin: Reports: No Symptoms Neurological: Reports: No Symptoms Psychiatric: Reports: No Symptoms - Patient Data Vitals - Most Recent: Last Vital Signs Temp 36.7 C 02/23/21 08:05 Pulse 84 02/23/21 08:05 Resp 16 02/23/21 08:05 BP 102/60 02/23/21 08:05 Pulse Ox 95 02/23/21 08:05 Weight - Most Recent: 99.79 kg I&O - Last 24 hours: Intake & Output 02/22/21 02/23/21 02/23/21 22:59 06:59 14:59 Output Total 550 Balance -550 Lab Results - Last 24 hrs: Laboratory Results - last 24 hr 02/21/21 02/21/21 02/23/21 Range/Units 06:18 06:18 05:50 Hgb 8.2 L (12.0-16.0) g/dL Hct 23.7 L (36.0-46.0) % RPR Non-Reac (Non-Reac) Crossmatch See Detail Med Orders - Current: Current Medications Docusate Sodium (Docusate Sodium 100 Mg Cap) 100 mg PO BID [facility] Last Admin: 02/23/21 08:08 Dose: 100 mg Documented by: Oxytocin/Sodium Chloride (Oxytocin 30 Unit In Ns 0.9% 500 Ml Premix) 30 unit in 500 mls @ 250 mls/hr IV TITRATE [facility] Lactated Ringer's (Ringers, Lactated) 1,000 mls @ 500 mls/hr IV BOLUS [facility] Last Admin: 02/21/21 07:19 Dose: 999 mls/hr Documented by: Lactated Ringer's (Ringers, Lactated) 1,000 mls @ 150 mls/hr IV ASDIRECTED [facility] Last Admin: 02/22/21 04:16 Dose: 150 mls/hr Documented by: Oxycodone/Acetaminophen (Acetaminophen/Oxycodone 325-5 Mg Tab) 2 tab PO Q6H PRN PRN Reason: Pain (severe 7-10) Last Admin: 02/23/21 05:13 Dose: 2 tab Documented by: Polysaccharide Iron Complex (Iron Polysaccharides Complex 150 Mg Cap) 150 mg PO DAILY [facility] Last Admin: 02/23/21 08:08 Dose: 150 mg Documented by: Sodium Chloride (Sodium Chloride 0.9% 10 Ml Syringe) 10 ml FLUSH ASDIRECTED PRN PRN Reason: Keep Vein Open Sodium Chloride (Sodium Chloride 0.9% 2.5 Ml Syringe) 2.5 ml FLUSH ASDIRECTED PRN PRN Reason: Keep Vein Open Sodium Chloride (Sodium Chloride 0.9% 10 Ml Sdv) 10 ml IV ASDIRECTED PRN PRN Reason: IV Use Discontinued Medications Bisacodyl (Bisacodyl 10 Mg Supp) 10 mg RECTAL ONETIME PRN PRN Reason: Constipation Carboprost Tromethamine (Carboprost Tromethamine 250 Mcg/1 Ml Amp) Confirm Administered Dose 250 mcg .ROUTE .STK-MED ONE Stop: 02/21/21 11:16 Last Admin: 02/21/21 11:18 Dose: 250 mcg Documented by: Carboprost Tromethamine (Carboprost Tromethamine 250 Mcg/1 Ml Amp) 250 mcg IM ONETIME ONE Stop: 02/21/21 12:00 Last Admin: 02/22/21 19:34 Dose: Not Given Documented by: Citric Acid/Sodium Citrate (Citric Acid/Sodium Citrate Solution 30 Ml Cup) 30 ml PO ONETIME ONE Stop: 02/21/21 03:02 Last Admin: 02/22/21 19:33 Dose: Not Given Documented by: Dexamethasone (Dexamethasone 4 Mg/Ml 5 Ml Mdv) Confirm Administered Dose 20 mg .ROUTE .STK-MED ONE Stop: 02/21/21 09:01 Diphenhydramine HCl (Diphenhydramine 50 Mg/Ml Sdv) 25 mg IVPUSH Q6H PRN PRN Reason: Itching or Nausea Docusate Sodium (Docusate Sodium 100 Mg Cap) 100 mg PO BID [facility] Emollient Ointment (Lanolin 100% Cream 7 Gm Tube) 0 gm TOP ASDIRECTED PRN PRN Reason: Sore Nipples Ephedrine Sulfate (Ephedrine 50 Mg/Ml Sdv) Confirm Administered Dose 50 mg .ROUTE .STK-MED ONE Stop: 02/21/21 09:01 Etomidate (Etomidate 2 Mg/Ml 20 Ml Sdv) Confirm Administered Dose 40 mg IVPUSH .STK-MED ONE Stop: 02/21/21 12:28 Fentanyl (Fentanyl 250 Mcg/5 Ml Sdv) Confirm Administered Dose 250 mcg .ROUTE .STK-MED ONE Stop: 02/21/21 11:12 Furosemide (Furosemide 20 Mg/2 Ml Vial) 20 mg IVPUSH NOW ONE Stop: 02/22/21 09:01 Last Admin: 02/22/21 09:32 Dose: 20 mg Documented by: Glycopyrrolate (Glycopyrrolate 0.2 Mg/Ml Sdv) Confirm Administered Dose 0.4 mg .ROUTE .STK-MED ONE Stop: 02/21/21 09:01 Glycopyrrolate (Glycopyrrolate 0.2 Mg/Ml Sdv) Confirm Administered Dose 0.4 mg .ROUTE .STK-MED ONE Stop: 02/21/21 12:28 Cefazolin Sodium/Dextrose 1 gm (/ Premix) 50 mls @ 100 mls/hr IV ONETIME ONE Stop: 02/21/21 07:49 Cefazolin Sodium/Dextrose 2 gm (/ Premix) 50 mls @ 100 mls/hr IV ONETIME ONE Stop: 02/21/21 08:15 Last Admin: 02/21/21 15:34 Dose: Not Given Documented by: Cefazolin Sodium/Dextrose (Ancef 2 Gm/50 Ml) Confirm Administered Dose 50 mls @ as directed .ROUTE .STK-MED ONE Stop: 02/21/21 07:52 Last Admin: 02/21/21 15:35 Dose: Not Given Documented by: Lactated Ringer's (Ringers, Lactated) 1,000 mls @ 125 mls/hr IV ASDIRECTED [facility] Tranexamic Acid 1,000 mg/ (Sodium Chloride) 110 mls @ 660 mls/hr IV ONETIME PRN PRN Reason: Bleeding Last Admin: 02/21/21 11:30 Dose: 999 mls/hr Documented by: Acetaminophen (Ofirmev 1000 Mg/100 Ml) Confirm Administered Dose 100 mls @ as directed .ROUTE .STK-MED ONE Stop: 02/21/21 09:01 Sodium Chloride (Normal Saline) Confirm Administered Dose 20 mls @ as directed .ROUTE .STK-MED ONE Stop: 02/21/21 09:02 Ibuprofen (Ibuprofen 800 Mg Tab) 800 mg PO Q8H PRN PRN Reason: Cramping Ketamine HCl (Ketamine 500 Mg/10 Ml Mdv) Confirm Administered Dose 500 mg .ROUTE .STK-MED ONE Stop: 02/21/21 11:13 Ketorolac Tromethamine (Ketorolac 30 Mg/Ml Sdv) 30 mg IVPUSH Q6H [facility] Stop: 02/22/21 08:16 Ketorolac Tromethamine (Ketorolac 30 Mg/Ml Sdv) Confirm Administered Dose 30 mg .ROUTE .STK-MED ONE Stop: 02/21/21 09:01 Methylergonovine Maleate (Methylergonovine 0.2 Mg/1 Ml Amp) 0.2 mg IM ONETIME PRN PRN Reason: Excessive Vaginal Bleeding Methylergonovine Maleate (Methylergonovine 0.2 Mg/1 Ml Amp) Confirm Administered Dose 0.2 mg .ROUTE .STK-MED ONE Stop: 02/21/21 09:44 Last Admin: 02/21/21 09:46 Dose: 0.2 mg Documented by: Methylergonovine Maleate (Methylergonovine 0.2 Mg/1 Ml Amp) Confirm Administered Dose 0.2 mg .ROUTE .[employer]-MED ONE Stop: 02/21/21 10:58 Last Admin: 02/21/21 11:00 Dose: 0.2 mg Documented by: Miscellaneous Medication (Phenylephrine Hcl In 0.9% Nacl 1 Mg/10 Ml Syringe) Confirm Administered Dose 1 mg .ROUTE .STK-MED ONE Stop: 02/21/21 09:01 Miscellaneous Medication (Phenylephrine Hcl In 0.9% Nacl 1 Mg/10 Ml Syringe) Confirm Administered Dose 1 mg .ROUTE .STK-MED ONE Stop: 02/21/21 12:28 Misoprostol (Misoprostol 200 Mcg Tab) 1,000 mcg RECTAL ONETIME PRN PRN Reason: excessive bleeding Last Admin: 02/21/21 10:56 Dose: 1,000 mcg Documented by: Misoprostol (Misoprostol 200 Mcg Tab) Confirm Administered Dose 1,000 mcg .ROUTE .[employer]-MED ONE Stop: 02/21/21 18:32 Last Admin: 02/22/21 19:35 Dose: Not Given Documented by: Morphine Sulfate (Morphine Pf 10 Mg/10 Ml Sdv) Confirm Administered Dose 10 mg .ROUTE .[employer]-MED ONE Stop: 02/21/21 08:03 Ondansetron HCl (Ondansetron 4 Mg/2 Ml Sdv) 4 mg IVPUSH Q4H PRN PRN Reason: Nausea/Vomiting Ondansetron HCl (Ondansetron 4 Mg/2 Ml Sdv) Confirm Administered Dose 4 mg .ROUTE .[employer]-MED ONE Stop: 02/21/21 09:01 Oxycodone/Acetaminophen (Acetaminophen/Oxycodone 325-5 Mg Tab) 1 tab PO Q4H PRN PRN Reason: Pain (severe 7-10) Oxycodone/Acetaminophen (Acetaminophen/Oxycodone 325-5 Mg Tab) 2 tab PO Q4H PRN PRN Reason: Pain (severe 7-10) Oxytocin (Oxytocin 10 Units/1 Ml Sdv) 10 unit IM ASDIRECTED PRN PRN Reason: Excessive Vaginal Bleeding Oxytocin (Oxytocin 10 Units/1 Ml Sdv) Confirm Administered Dose 60 unit .ROUTE .STK-MED ONE Stop: 02/21/21 09:29 Oxytocin (Oxytocin 10 Units/1 Ml Sdv) Confirm Administered Dose 30 unit .ROUTE .STK-MED ONE Stop: 02/21/21 15:34 Phenylephrine HCl (Phenylephrine 1% 10 Mg/Ml Sdv) Confirm Administered Dose 20 mg .ROUTE .STK-MED ONE Stop: 02/21/21 12:28 Tranexamic Acid (Tranexamic Acid 1,000 Mg/10 Ml Amp) Confirm Administered Dose 1,000 mg .ROUTE .STK-MED ONE Stop: 02/21/21 09:55 Tranexamic Acid (Tranexamic Acid 1,000 Mg/10 Ml Amp) Confirm Administered Dose 1,000 mg .ROUTE .STK-MED ONE Stop: 02/21/21 18:31 Last Admin: 02/22/21 19:35 Dose: Not Given Documented by: - Exam General: Reports: Alert, Oriented HEENT: Reports: Pupils Equal, Pupils Reactive, EOMI, Mucous Membr. Moist/[place] Neck: Reports: Supple Lungs: Reports: Clear to Auscultation, Normal Respiratory Effort Cardiovascular: Reports: Regular Rate, Regular Rhythm GI/Abdominal Exam: Normal Bowel Sounds, Soft, Non-Tender, No Organomegaly, No Distention, No Abnormal Bruit, No Mass, Pelvis Stable (Female) Exam: Normal External Exam, Normal Speculum Exam, Normal Bimanual Exam Rectal (Female) Exam: Normal Exam, Normal Rectal Tone Back Exam: Reports: Normal Inspection, Full Range of Motion Extremities: Normal Inspection, Normal Range of Motion, Non-Tender, No Pedal Edema, Normal Capillary Refill Skin: Reports: Warm, Dry, Intact Wound/Incisions: Reports: Healing Well Neurological: Reports: No New Focal Deficit Psy/Mental Status: Reports: Alert, Normal Affect, Normal Mood
== END 2021-02-23 12:39 | disposition home or self-care (01) | DRG 787 ==
LOC: MW.OB 02:27
PROVIDERS: ADMIT Obstetrics & Gynecology; ATTEND Obstetrics & Gynecology
PROC: 10D00Z1 Extraction of Products of Conception, Low, Open Approach (ICD-10-PCS; principal; 2021-02-21)
PROC: 30233N1 Transfusion of Nonautologous Red Blood Cells into Peripheral Vein, Percutaneous Approach (ICD-10-PCS; 2021-02-21)
PROC: 30233K1 Transfusion of Nonautologous Frozen Plasma into Peripheral Vein, Percutaneous Approach (ICD-10-PCS; 2021-02-21)
DX: O34.211 Maternal care for low transverse scar from previous cesarean delivery (principal); O72.1 Other immediate postpartum hemorrhage; Z37.0 Single live birth; Z3A.39 39 weeks gestation of pregnancy
CPT/HCPCS: 36415; 36430; 59025; 80053; 85014; 85018; 85027; 85384; 85610; 85730; 86592; 86850; 86900; 86901; 86920; 86921; 86922; A9270-GY; J0131; J0690; J1100; J1885; J1940; J2210; J2270; J2370; J2405; J2590; J3010; J3490; J7120; P9016; P9017